=== PATIENT | female | born 1965 | race African-American/Black ===

== ENCOUNTER 2017-02-06 10:32 | Inpatient (IN) | payer SELFPAY ==
[~2017-02-06] VITALS: Ht 160 cm; Wt 68.0 kg
[~2017-02-06 10:32] MED LIST: ATOR20TA58 PO; LISI-334 PO; RANI300C PO; TRIA1CAP3 PO
[2017-02-06] MEDS ORDERED: THIAMINE 100 MG TABLET. PO ONE (11:15)
--- NOTE | 2017-02-06 11:15 | EKG ---
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
[2017-02-06] MEDS: IV NORMAL SALINE 1000ML BAG 1,000 ML IV SCH ×17 (11:36→18:45)
[2017-02-06 11:41] LABS: POTASSIUM ISTAT 4.4 mmol/L (3.5-5.0)
[2017-02-06] MEDS ORDERED: ONDANSETRON PF 4 MG/2 ML VIAL. IV ONE (12:00)
--- NOTE | 2017-02-06 12:27 | RAD ---
EXAM: CT head without contrast. HISTORY: Headache. TECHNIQUE: Computed tomography of the head was performed without intravenous contrast. COMPARISON: 08/21/2009. FINDINGS: There is no intracranial hemorrhage. Harmon-white differentiation is preserved. The ventricles are normal in size and position. The visualized paranasal sinuses appear clear. The orbits are unremarkable. The temporal bones are unremarkable. The calvarium reveals no suspicious lesions. IMPRESSION: 1. No acute intracranial findings. *One or more of the following individualized dose reduction techniques were utilized for this examination: 1. Automated exposure control. 2. Adjustment of the mA and/or kV according to patient size. 3. Use of iterative reconstruction technique.
[2017-02-06 12:58] LABS: BARBITURATES NEG (NEG); BENZODIAZEPINES NEG (NEG); CANNABINOIDS POS (NEG); COCAINE NEG (NEG); METHADONE NEG (NEG); OPIATES NEG (NEG); PHENCYCLIDINE NEG (NEG)
[2017-02-06] MEDS ORDERED: ONDANSETRON PF 4 MG/2 ML VIAL. IV PRN (13:00)
[2017-02-06] MEDS ORDERED: ACETAMINOPHEN 325 MG TABLET. PO PRN (13:00)
[2017-02-06] MEDS ORDERED: IV DEXTROSE 5% - 0.9 % NACL 500 ML IV ONE ×2 (13:00)
[2017-02-06 13:10] LABS: BASO # 0.1 x10^3/uL (0.0-0.2); BASO % 1 % (0-3); EOS % 0 % (0-3); HEMATOCRIT 47.2 % (36.0-47.0); LYMPH # 0.8 x10^3/uL (1.0-4.8); LYMPH % 8 % (24-48); MEAN CORPUSCULAR HEMOGLOBIN 32 pg (25-35); MEAN CORPUSCULAR HGB CONC 32 g/dL (31-37); MEAN CORPUSCULAR VOLUME 102 fL (79-100); MONO % 3 % (0-9); NEUT % 89 % (31-73); PLATELET COUNT 242 x10^3/uL (140-400); RED BLOOD COUNT 4.66 x10^6/uL (3.50-5.40); RED CELL DISTRIBUTION WIDTH 14.3 % (11.5-14.5)
[2017-02-06 13:12] LABS: BILIRUBIN,URINE NEGATIVE (NEG); GLUCOSE,URINE NEGATIVE (NEG); NITRITE,URINE NEGATIVE (NEG); PROTEIN,URINE >=300 mg/dL (NEG-TRACE); UROBILINOGEN,URINE 0.2 mg/dL (0.2 mg/dL)
[2017-02-06 13:20] LABS: BACTERIA,URINE MOD /HPF (0-FEW); SQUAMOUS EPITHELIAL CELL,UR MANY /LPF
--- NOTE | 2017-02-06 13:21 | RAD ---
Indication: Tachycardia. Time of exam 1311 hours. Correlation is made with prior study from 03/28/2015. FINDINGS: The heart size is normal. The lungs are clear. No pleural effusion or pneumothorax is identified. The pulmonary vascularity is normal. IMPRESSION: No acute abnormality detected.
[2017-02-06 13:34] LABS: PLT ESTIMATE ADEQUATE (ADEQUATE)
[2017-02-06] MEDS ORDERED: cloNIDine HCL 0.1 MG TABLET PO PRN (14:45)
[2017-02-06] MEDS ORDERED: diphenhydrAMINE 50 MG/ML VIAL IVP PRN (14:45)
[2017-02-06] MEDS ORDERED: HALOPERIDOL LACTATE 5 MG/ML VIAL. IVP PRN (14:45)
[2017-02-06 15:13] VITALS: BP 175/93
--- NOTE | 2017-02-06 15:13 | PHYS DOC ---
Past Medical History Past Medical History: Alcoholism, GERD, Hypertension, Pancreatitis Past Surgical History: Tubal ligation Additional Information: pt reports not smoking at this time. Alcohol Use: Heavy Additional Information: Pt reports not drinking for the past week. Drug Use: Marijuana Adult General Chief Complaint Chief Complaint: HEADACHE HPI HPI 51-year-old female with a history of alcoholism and gastritis reflux disease hypertension and chronic pancreatitis now presents the emergency department complaining of not feeling well since stopping drinking days ago. Patient reports mild malaise and a mild headache which was gradual onset. She denies any recent head trauma. States she is not feeling well in general. No fevers chills sweats or shaking chills. Decreased appetite Review of Systems Review of Systems Constitutional: Denies fever or chills [] Eyes: Denies change in visual acuity, redness, or eye pain [] HENT: Denies nasal congestion or sore throat [] Respiratory: Denies cough or shortness of breath [] Cardiovascular: No additional information not addressed in HPI [] GI: Denies abdominal pain, nausea, vomiting, bloody stools or diarrhea [] : Denies dysuria or hematuria [] Musculoskeletal: Denies back pain or joint pain [] Integument: Denies rash or skin lesions [] Neurologic: Denies headache, focal weakness or sensory changes [] Endocrine: Denies polyuria or polydipsia [] All other systems were reviewed and found to be within normal limits, except as documented in this note. Current Medications Current Medications Current Medications Medications (Trade) Dose Ordered Sig/Dyllan Start Time Stop Time Status Last Admin Dose Admin Lorazepam (Ativan) 1 mg 1X ONCE 02/06/17 11:15 02/06/17 11:16 DC 02/06/17 11:39 1 MG Ondansetron HCl (Zofran) 4 mg 1X ONCE 02/06/17 12:00 02/06/17 12:01 DC 02/06/17 11:51 4 MG Sodium Chloride 1,000 ml @ 999 mls/hr Q1H1M 02/06/17 11:15 02/06/17 12:58 999 MLS/HR Thiamine Mononitrate (Vitamin B-1) 100 mg ONCE ONCE 02/06/17 11:15 02/06/17 11:16 DC 02/06/17 12:36 100 MG Allergies Allergies Allergies Coded Allergies Type Severity Reaction Last Updated Verified No Known Drug Allergies 03/27/15 No Physical Exam Physical Exam 51-year-old female alert communicative cooperative and appropriate with dry mucous membranes mild tachycardia otherwise benign exam. Constitutional: Well developed, well nourished, no acute distress, non-toxic appearance. [] HENT: Normocephalic, atraumatic, bilateral external ears normal, oropharynx dry , no oral exudates, nose normal. [] Eyes: PERRLA, EOMI, conjunctiva normal, no discharge. [] Neck: Normal range of motion, no tenderness, supple, no stridor. [] Cardiovascular:Heart rate regular rhythm, no murmur [] Lungs & Thorax: Bilateral breath sounds clear to auscultation [] Abdomen: Bowel sounds normal, soft, no tenderness, no masses, no pulsatile masses. [] Skin: Warm, dry, no erythema, no rash. [] Back: No tenderness, no CVA tenderness. [] Extremities: No tenderness, no cyanosis, no clubbing, ROM intact, no edema. [] Neurologic: Alert and oriented X 3, normal motor function, normal sensory function, no focal deficits noted. [] Psychologic: Affect normal, judgement normal, mood normal. [] Current Patient Data Vital Signs Vital Signs Date Time Temp Pulse Resp B/P (MAP) Pulse Ox O2 Delivery O2 Flow Rate FiO2 02/06/17 12:34 104 22 98 02/06/17 10:37 97.7 124/71 (88) Room Air 97.7 Lab Values Laboratory Tests Test 02/06/17 10:52 02/06/17 11:36 02/06/17 12:35 White Blood Count 10.0 x10^3/uL (4.0-11.0) Red Blood Count 4.66 x10^6/uL (3.50-5.40) Hemoglobin 15.0 g/dL (12.0-15.5) Hematocrit 47.2 % (36.0-47.0) H Mean Corpuscular Volume 102 fL (79-100) H Mean Corpuscular Hemoglobin 32 pg (25-35) Mean Corpuscular Hemoglobin Concent 32 g/dL (31-37) Red Cell Distribution Width 14.3 % (11.5-14.5) Platelet Count 242 x10^3/uL (140-400) Neutrophils (%) (Auto) 89 % (31-73) H Lymphocytes (%) (Auto) 8 % (24-48) L Monocytes (%) (Auto) 3 % (0-9) Eosinophils (%) (Auto) 0 % (0-3) Basophils (%) (Auto) 1 % (0-3) Neutrophils # (Auto) 8.9 x10^3uL (1.8-7.7) H Lymphocytes # (Auto) 0.8 x10^3/uL (1.0-4.8) L Monocytes # (Auto) 0.3 x10^3/uL (0.0-1.1) Eosinophils # (Auto) 0.0 x10^3/uL (0.0-0.7) Basophils # (Auto) 0.1 x10^3/uL (0.0-0.2) Segmented Neutrophils % 83 % (35-66) H Band Neutrophils % 7 % (0-9) Lymphocytes % 6 % (24-48) L Monocytes % 4 % (0-10) Platelet Estimate Adequate (ADEQUATE) Troponin I Quantitative < 0.017 ng/mL (0.000-0.055) POC Hemoglobin 17.0 g/dL (12-15) H POC Hematocrit 50 % (36-40) H POC Sodium 137 mmol/L (135-145) POC Potassium 4.4 mmol/L (3.5-5.0) POC Chloride 107 mmol/L (98-110) POC Total CO2 8 mmol/L (23-32) L Anion Gap 27 mmol/L (6-14) H POC Blood Urea Nitrogen 19 mg/dL (8-26) POC Creatinine 1.9 mg/dL (0.5-1.4) H Glucose Level 96 mg/dL (70-99) POC Ionized Calcium (Li) 1.11 mmol/L (1.13-1.32) L Urine Collection Type Void Urine Color Yellow Urine Clarity Clear Urine pH 6.0 Urine Specific [place] 1.020 Urine Protein >=300 mg/dL (NEG-TRACE) Urine Glucose (UA) Negative mg/dL (NEG) Urine Ketones (Stick) >=80 mg/dL (NEG) Urine Blood Moderate (NEG) Urine Nitrite Negative (NEG) Urine Bilirubin Negative (NEG) Urine Urobilinogen Dipstick 0.2 mg/dL (0.2 mg/dL) Urine Leukocyte Esterase Negative (NEG) Urine RBC 3-5 /HPF (0-2) Urine WBC 1-4 /HPF (0-4) Urine Squamous Epithelial Cells Many /LPF Urine Bacteria Mod /HPF (0-FEW) Urine Mucus Slight /LPF Urine Opiates Screen Neg (NEG) Urine Methadone Screen Neg (NEG) Urine Barbiturates Neg (NEG) Urine Phencyclidine Screen Neg (NEG) Urine Amphetamine/Methamphetamine Neg (NEG) Urine Benzodiazepines Screen Neg (NEG) Urine Cocaine Screen Neg (NEG) Urine Cannabinoids Screen Pos (NEG) Urine Ethyl Alcohol Pos (NEG) Laboratory Tests 02/06/17 10:52 Laboratory Tests 02/06/17 11:36 EKG EKG [] Radiology/Procedures Radiology/Procedures [] Course & Med Decision Making Course & Med Decision Making Pertinent Labs and Imaging studies reviewed. (See chart for details) Signs and symptoms consistent with dehydration setting of alcoholism. Patient with mild tachycardia and appearing dry on exam, otherwise well-appearing and nonfocal neurologically. Lukas no tremor seizure history or evidence of DTs. I- STAT was CO2 8 consistent with metabolic acidosis with anion gap of 27 suspect alcoholic ketoacidosis. IV fluids had been initially administered and D5 normal saline ordered. Patient with renal injury creatinine 1.9. She has no evidence of respiratory pathology and no suspicion of mixed acid base disorder. Case discussed with Dr. Roc Simmons [facility] on-call is aware of history and findings and agrees with inpatient admission his service to a telemetry bed for further workup and treatment as needed. [] Dragon Disclaimer Dragon Disclaimer This electronic medical record was generated, in whole or in part, using a voice recognition dictation system. Departure Departure Impression: Primary Impression: Dehydration Additional Impressions: Metabolic acidosis Alcoholic ketoacidosis Acute renal injury Disposition: ADMITTED INPATIENT Admitting Physician: Mike Simmons Condition: STABLE Referrals: NO PCP (PCP) Problem Qualifiers CARLO DOWD MD Feb 06, 2017 15:13
[2017-02-06 15:15] VITALS: BP 175/93
[2017-02-06] MEDS: MULTIVIT INFUSN,ADULT 4,VIT K 10 ML, THIAMINE 100 MG, FOLIC ACID 1 MG in IV NORMAL SALI... IV SCH (15:30)
[2017-02-06] MEDS ORDERED: INFLUENZA VAX SCREEN BY RX. MC PRN (17:30)
[2017-02-06] MEDS ORDERED: FLU VACC QS2017-18 (36MOS+)/PF 0.5 ML SYRINGE. VAX IM ONE (18:00)
--- NOTE | 2017-02-06 18:18 | HP ---
ADMIT DATE: 02/06/2017 CHIEF COMPLAINT: Alcohol withdrawal. HISTORY OF PRESENT ILLNESS: The patient is a pleasant middle-aged female who drinks too much. She states she has been drinking gin again. 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 Basically, she is in alcohol withdrawal. She also has alcoholic ketosis. I discussed the case with the Emergency Room physician. We are going to admit the patient and give her alcohol withdrawal protocol. PAST MEDICAL HISTORY: Alcoholism. ALLERGIES: None. FAMILY HISTORY: Coronary artery disease and alcoholism. 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 She does not smoke or take drugs. MEDICATIONS: Reviewed. REVIEW OF SYSTEMS: GENERAL: No history of weight change, weakness or fevers. SKIN: No bruising, hair changes or rashes. EYES: No blurred, double or loss of vision. NOSE AND THROAT: No history of nosebleeds, hoarseness or sore throat. HEART: No history of palpitations, chest pain or shortness of breath on exertion. LUNGS: Denies cough, hemoptysis, wheezing or shortness of breath. GASTROINTESTINAL: Denies changes in appetite, nausea, vomiting, diarrhea or constipation. GENITOURINARY: No history of frequency, urgency, hesitancy or nocturia. NEUROLOGIC: She complains of shaking and mental confusion. PSYCHIATRIC: No history of panic, anxiety or depression. ENDOCRINE: No history of heat or cold intolerance, polyuria or polydipsia. EXTREMITIES: She complains of weakness. PHYSICAL EXAMINATION: VITAL SIGNS: Temperature afebrile, pulse 92, respirations 18, blood pressure 146/70. GENERAL: She is alert, cooperative, a little shaky, a little confused at times. HEART: Normal S1, S2. LUNGS: Clear. ABDOMEN: Soft. EXTREMITIES: Trace edema. SKIN: No rashes. ENDOCRINE: No thyromegaly. LYMPHATICS: No cervical nodes. HEMATOPOIETIC: No bruising. ASSESSMENT AND PLAN: Alcohol withdrawal. The patient is being admitted. We will give her IV banana bags, IV Ativan, alcohol withdrawal protocol. Continue home medicines. ANGELA FRAGA DO DR: ZEE/jeff JOB#: [id number] / [id number]
[2017-02-06 19:53] VITALS: BP 160/87
[2017-02-06 23:00] VITALS: BP 165/90
[2017-02-07 03:05] VITALS: BP 129/68
[2017-02-07] MEDS: IV NORMAL SALINE 1000ML BAG 1,000 ML IV SCH ×3 (04:08→20:43)
[2017-02-07 07:00] VITALS: BP 130/83
[2017-02-07] MEDS: MULTIVIT INFUSN,ADULT 4,VIT K 10 ML, THIAMINE 100 MG, FOLIC ACID 1 MG in IV NORMAL SALI... IV SCH (08:39)
[2017-02-07 11:00] VITALS: BP 128/70
[2017-02-07 15:00] VITALS: BP 128/84
--- NOTE | 2017-02-07 15:29 | PDOC ---
PROGRESS NOTES History of Present Illness History of Present Illness FAMILY HISTORY: Coronary artery disease and alcoholism. 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 She does not smoke or take drugs. MEDICATIONS: Reviewed. REVIEW OF SYSTEMS: GENERAL: No history of weight change, weakness or fevers. SKIN: No bruising, hair changes or rashes. EYES: No blurred, double or loss of vision. NOSE AND THROAT: No history of nosebleeds, hoarseness or sore throat. HEART: No history of palpitations, chest pain or shortness of breath on exertion. LUNGS: Denies cough, hemoptysis, wheezing or shortness of breath. GASTROINTESTINAL: Denies changes in appetite, nausea, vomiting, diarrhea or constipation. GENITOURINARY: No history of frequency, urgency, hesitancy or nocturia. NEUROLOGIC: She complains of shaking and mental confusion. PSYCHIATRIC: No history of panic, anxiety or depression. ENDOCRINE: No history of heat or cold intolerance, polyuria or polydipsia. EXTREMITIES: She complains of weakness. PHYSICAL EXAMINATION: VITAL SIGNS: Temperature afebrile, pulse 92, respirations 18, blood pressure 146/70. GENERAL: She is alert, cooperative, shaky, confused at times. HEART: Normal S1, S2. LUNGS: Clear. ABDOMEN: Soft. EXTREMITIES: Trace edema. SKIN: No rashes. ENDOCRINE: No thyromegaly. LYMPHATICS: No cervical nodes. HEMATOPOIETIC: No bruising. ASSESSMENT AND PLAN: Alcohol withdrawal. The patient is being admitted. IV banana bags, IV Ativan, alcohol withdrawal protocol. Continue home medicines. Vitals Vitals Vital Signs Date Time Temp Pulse Resp B/P (MAP) Pulse Ox O2 Delivery O2 Flow Rate FiO2 02/07/17 15:00 98.0 86 18 128/84 (99) 98 Room Air 98.0 Physical Exam Lungs: Clear Labs LABS Laboratory Tests Test 02/06/17 19:00 02/07/17 01:00 Troponin I Quantitative < 0.017 ng/mL (0.000-0.055) < 0.017 ng/mL (0.000-0.055) Assessment and Plan Assessmemt and Plan Problems Medical Problems: (1) Acute renal injury Status: Acute (2) Alcoholic ketoacidosis Status: Acute Problems: Comment Review of Relevant I have reviewed the following items ranjit (where applicable) has been applied. Labs EXAM: CT head without contrast. HISTORY: Headache. TECHNIQUE: Computed tomography of the head was performed without intravenous contrast. COMPARISON: 08/21/2009. FINDINGS: There is no intracranial hemorrhage. Harmon-white differentiation is preserved. The ventricles are normal in size and position. The visualized paranasal sinuses appear clear. The orbits are unremarkable. The temporal bones are unremarkable. The calvarium reveals no suspicious lesions. IMPRESSION: 1. No acute intracranial findings. *One or more of the following individualized dose reduction techniques were utilized for this examination: 1. Automated exposure control. 2. Adjustment of the mA and/or kV according to patient size. 3. Use of iterative reconstruction technique. PROCEDURE: CHEST AP ONLY Indication: Tachycardia. Time of exam 1311 hours. Correlation is made with prior study from 03/28/2015. FINDINGS: The heart size is normal. The lungs are clear. No pleural effusion or pneumothorax is identified. The pulmonary vascularity is normal. IMPRESSION: No acute abnormality detected. Laboratory Tests Test 02/06/17 10:52 02/06/17 11:36 02/06/17 12:35 02/06/17 19:00 White Blood Count 10.0 x10^3/uL (4.0-11.0) Red Blood Count 4.66 x10^6/uL (3.50-5.40) Hemoglobin 15.0 g/dL (12.0-15.5) Hematocrit 47.2 % (36.0-47.0) Mean Corpuscular Volume 102 fL (79-100) Mean Corpuscular Hemoglobin 32 pg (25-35) Mean Corpuscular Hemoglobin Concent 32 g/dL (31-37) Red Cell Distribution Width 14.3 % (11.5-14.5) Platelet Count 242 x10^3/uL (140-400) Neutrophils (%) (Auto) 89 % (31-73) Lymphocytes (%) (Auto) 8 % (24-48) Monocytes (%) (Auto) 3 % (0-9) Eosinophils (%) (Auto) 0 % (0-3) Basophils (%) (Auto) 1 % (0-3) Neutrophils # (Auto) 8.9 x10^3uL (1.8-7.7) Lymphocytes # (Auto) 0.8 x10^3/uL (1.0-4.8) Monocytes # (Auto) 0.3 x10^3/uL (0.0-1.1) Eosinophils # (Auto) 0.0 x10^3/uL (0.0-0.7) Basophils # (Auto) 0.1 x10^3/uL (0.0-0.2) Segmented Neutrophils % 83 % (35-66) Band Neutrophils % 7 % (0-9) Lymphocytes % 6 % (24-48) Monocytes % 4 % (0-10) Platelet Estimate Adequate (ADEQUATE) Troponin I Quantitative < 0.017 ng/mL (0.000-0.055) < 0.017 ng/mL (0.000-0.055) Bedside Hemoglobin 17.0 g/dL (12-15) Bedside Hematocrit 50 % (36-40) Bedside Sodium 137 mmol/L (135-145) Bedside Potassium 4.4 mmol/L (3.5-5.0) Bedside Chloride 107 mmol/L (98-110) Bedside Total CO2 8 mmol/L (23-32) Anion Gap 27 mmol/L (6-14) Bedside Blood Urea Nitrogen 19 mg/dL (8-26) Bedside Creatinine 1.9 mg/dL (0.5-1.4) Glucose Level 96 mg/dL (70-99) Bedside Ionized Calcium (Li) 1.11 mmol/L (1.13-1.32) Urine Collection Type Void Urine Color Yellow Urine Clarity Clear Urine pH 6.0 Urine Specific [place] 1.020 Urine Protein >=300 mg/dL (NEG-TRACE) Urine Glucose (UA) Negative mg/dL (NEG) Urine Ketones (Stick) >=80 mg/dL (NEG) Urine Blood Moderate (NEG) Urine Nitrite Negative (NEG) Urine Bilirubin Negative (NEG) Urine Urobilinogen Dipstick 0.2 mg/dL (0.2 mg/dL) Urine Leukocyte Esterase Negative (NEG) Urine RBC 3-5 /HPF (0-2) Urine WBC 1-4 /HPF (0-4) Urine Squamous Epithelial Cells Many /LPF Urine Bacteria Mod /HPF (0-FEW) Urine Mucus Slight /LPF Urine Opiates Screen Neg (NEG) Urine Methadone Screen Neg (NEG) Urine Barbiturates Neg (NEG) Urine Phencyclidine Screen Neg (NEG) Urine Amphetamine/Methamphetamine Neg (NEG) Urine Benzodiazepines Screen Neg (NEG) Urine Cocaine Screen Neg (NEG) Urine Cannabinoids Screen Pos (NEG) Urine Ethyl Alcohol Pos (NEG) Test 02/07/17 01:00 Troponin I Quantitative < 0.017 ng/mL (0.000-0.055) Laboratory Tests Test 02/06/17 19:00 02/07/17 01:00 Troponin I Quantitative < 0.017 ng/mL (0.000-0.055) < 0.017 ng/mL (0.000-0.055) Medications Current Medications Thiamine Mononitrate (Vitamin B-1) 100 mg ONCE ONCE PO Last administered on 12:36; Start 02/06/17 at 11:15; Stop 02/06/17 at 18:46; Status DC Sodium Chloride 1,000 ml @ 999 mls/hr Q1H1M IV Last administered on 11:36; Start 02/06/17 at 11:15; Stop 02/06/17 at 18:46; Status DC Sodium Chloride 1,000 ml @ 999 mls/hr Q1H1M IV Last administered on 12:58; Start 02/06/17 at 11:15; Stop 02/06/17 at 18:46; Status DC Lorazepam (Ativan) 1 mg 1X ONCE IV Last administered on 02/06/17 11:39; Start 02/06/17 at 11:15; Stop 02/06/17 at 11:16; Status DC Ondansetron HCl (Zofran) 4 mg 1X ONCE IV Last administered on 02/06/17 11:51 ; Start 02/06/17 at 12:00; Stop 02/06/17 at 12:01; Status DC Dextrose/Sodium Chloride 500 ml @ 0 mls/hr 1X ONCE IV Last administered on 13:31; Start 02/06/17 at 13:00; Stop 02/06/17 at 13:01; Status DC Ondansetron HCl (Zofran) 4 mg PRN Q8HRS PRN IV NAUSEA/VOMITING Last administered on 02/06/17 14:57; Start 02/06/17 at 13:00; Stop 02/07/17 at 12 :59; Status DC Acetaminophen (Tylenol) 650 mg PRN Q4HRS PRN PO FEVER Last administered on 19:54; Start 02/06/17 at 13:00; Stop 02/07/17 at 12:59; Status DC Dextrose/Sodium Chloride 500 ml @ 250 mls/hr 1X ONCE IV Last administered on 02/06/17 14:03; Start 02/06/17 at 13:00; Stop 02/06/17 at 14:59; Status DC Multivitamins 10 ml/Thiamine HCl 100 mg/Folic Acid 1 mg/Sodium Chloride 1,011.2 ml @ 100 mls/ hr DAILY IV Last administered on 02/07/17 08:39; Start at 15:30; Stop 02/10/17 at 19:07 Lorazepam (Ativan) 2 mg PRN Q1HR PRN IV For CIWA 8-14 Last administered on 08:51; Start 02/06/17 at 14:45 Lorazepam (Ativan) 4 mg PRN Q1HR PRN IV For CIWA 15 or greater Last administered on 02/06/17 14:58; Start 02/06/17 at 14:45 Haloperidol Lactate (Haldol) 5 mg PRN Q4HRS PRN IVP Hallucinatns,Confusn, Delirium; Start 02/06/17 at 14:45 Diphenhydramine HCl (Benadryl) 25 mg PRN Q15MIN PRN IVP EPS symptoms 2'Haldol admin; Start 02/06/17 at 14:45 Clonidine HCl (Catapres) 0.1 mg PRN Q1HR PRN PO SBP > 180 or DBP > 100, MRX3; Start 02/06/17 at 14:45 Info (Do NOT chart on this placeholder) 1 each PRN 1X PRN MC SEE COMMENTS; Start 02/06/17 at 17:30; Status UNV Influenza Virus Vaccine Quadrival (Fluarix Quad [id number] Syringe) 0.5 ml ONCE ONCE VAX IM Last administered on 02/06/17 18:02; Start 02/06/17 at 18:00; Stop 02/06/17 at 18:01; Status DC Sodium Chloride 1,000 ml @ 125 mls/hr Q8H IV Last administered on 02/07/17 04:08; Start 02/06/17 at 18:45 Active Scripts Active Atorvastatin Calcium 20 Mg Tablet 20 Mg PO QHS Reported Triamterene-Hctz 37.5-25 Mg Cp (Triamterene/Hydrochlorothiazid) 1 Each Capsule 1 Cap PO DAILY Ranitidine Hcl 300 Mg Capsule 1 Cap PO BID Lisinopril 20 Mg Tablet 1 Tab PO DAILY Vitals/I & O SEVERE ALCOHOL ABUSE THC ABUSE NONCOMPLIANCE WITH ALCOHOL CESSATION Vital Sign - Last 24 Hours 02/06/17 02/06/17 02/06/17 02/06/17 15:43 19:53 20:00 20:47 Temp 99.0 99.0 Pulse 99 Resp 20 B/P (MAP) 160/87 (111) Pulse Ox 98 O2 Delivery Room Air Room Air Room Air 02/06/17 02/07/17 02/07/17 02/07/17 23:00 03:05 07:00 08:00 Temp 98.3 98.0 97.8 98.3 98.0 97.8 Pulse 94 93 78 Resp 18 18 18 B/P (MAP) 165/90 (115) 129/68 (88) 130/83 (99) Pulse Ox 97 96 100 O2 Delivery Room Air Room Air Room Air Room Air 02/07/17 02/07/17 11:00 15:00 Temp 98.1 98.0 98.1 98.0 Pulse 90 86 Resp 18 18 B/P (MAP) 128/70 (89) 128/84 (99) Pulse Ox 97 98 O2 Delivery Room Air Room Air Intake and Output 02/06/17 02/06/17 02/07/17 14:59 22:59 06:59 Intake Total 2500 ml 1940 ml 500 ml Balance 2500 ml 1940 ml 500 ml TALI YUN MD Feb 07, 2017 15:29
[2017-02-07] MEDS: PANTOPRAZOLE SODIUM IV DRIP 80 MG in IV NORMAL SALINE 100ML 100 ML IV SCH (16:33)
[2017-02-07 16:53] LABS: ALBUMIN 3.5 g/dL (3.4-5.0); ALBUMIN/GLOBULIN RATIO 0.9 (1.0-1.7); CALCIUM 8.4 mg/dL (8.5-10.1); CREATININE 0.8 mg/dL (0.6-1.0); GFR 90.8; POTASSIUM 3.6 mmol/L (3.5-5.1); TOTAL BILIRUBIN 0.6 mg/dL (0.2-1.0); TOTAL PROTEIN 7.3 g/dL (6.4-8.2)
[2017-02-07 19:05] VITALS: BP 134/84
[2017-02-07 23:05] VITALS: BP 148/91
[2017-02-08 03:05] VITALS: BP 147/93
[2017-02-08] MEDS: PANTOPRAZOLE SODIUM IV DRIP 80 MG in IV NORMAL SALINE 100ML 100 ML IV SCH ×2 (03:10→12:00)
[2017-02-08 03:44] LABS: BASO % 1 % (0-3); EOS % 1 % (0-3); HEMATOCRIT 38.5 % (36.0-47.0); HEMOGLOBIN 12.9 g/dL (12.0-15.5); LYMPH # 1.3 x10^3/uL (1.0-4.8); LYMPH % 20 % (24-48); MEAN CORPUSCULAR HEMOGLOBIN 32 pg (25-35); MEAN CORPUSCULAR HGB CONC 34 g/dL (31-37); MEAN CORPUSCULAR VOLUME 96 fL (79-100); MONO % 3 % (0-9); NEUT % 75 % (31-73); PLATELET COUNT 103 x10^3/uL (140-400); RED BLOOD COUNT 4.02 x10^6/uL (3.50-5.40); WHITE BLOOD COUNT 6.4 x10^3/uL (4.0-11.0)
[2017-02-08 04:19] LABS: ALBUMIN 3.1 g/dL (3.4-5.0); ALBUMIN/GLOBULIN RATIO 0.8 (1.0-1.7); CALCIUM 8.4 mg/dL (8.5-10.1); CREATININE 0.7 mg/dL (0.6-1.0); GFR 105.9; TOTAL BILIRUBIN 0.6 mg/dL (0.2-1.0); TOTAL PROTEIN 7.2 g/dL (6.4-8.2)
[2017-02-08] MEDS: IV NORMAL SALINE 1000ML BAG 1,000 ML IV SCH ×4 (05:12→19:50)
[2017-02-08 07:00] VITALS: BP 175/91
--- NOTE | 2017-02-08 07:23 | RAD ---
EXAM: ABDOMINAL ULTRASOUND. HISTORY: Abdominal pain, nausea/vomiting. COMPARISON: None. FINDINGS: Sonographic evaluation of the abdomen was performed. Hyperechogenicity of the hepatic parenchyma is consistent with diffuse hepatic steatosis. This lowers sensitivity for focal lesions but none are seen. There is no clear hepatic surface nodularity. The liver is at least mildly enlarged spanning 18.3 cm. The spleen measures 10.3 cm. The gallbladder is unremarkable without evidence of stones, wall thickening or pericholecystic fluid. There is no sonographic Perry sign. The common duct measures 4.5 mm. The visualized portions of the head of the pancreas reveal no abnormality. The right kidney measures 9.8 cm. Cortical thickness and echogenicity are preserved. There is no hydronephrosis. The left kidney measures 11.5 cm. Cortical thickness and echogenicity are preserved. There is no hydronephrosis. The visualized portions of the abdominal aorta and inferior vena cava are grossly patent and normal in caliber. IMPRESSION: 1. Diffuse hepatic steatosis and mild hepatomegaly.
[2017-02-08] MEDS: TRIAMTERENE/HCTZ 37.5/25MG TABLET. PO SCH (08:57)
[2017-02-08] MEDS: FAMOTIDINE 20 MG TABLET. PO SCH ×2 (08:58→20:17)
[2017-02-08] MEDS: LISINOPRIL 20 MG TABLET PO SCH (08:58)
[2017-02-08] MEDS ORDERED: LORazepam 1 MG TABLET PO PRN (10:45)
[2017-02-08 11:00] VITALS: BP 163/95
[2017-02-08] MEDS: MULTIVIT INFUSN,ADULT 4,VIT K 10 ML, THIAMINE 100 MG, FOLIC ACID 1 MG in IV NORMAL SALI... IV SCH (11:10)
[2017-02-08] MEDS: amLODIPine BESYLATE 5 MG TABLET PO SCH ×2 (11:10→20:18)
[2017-02-08] MEDS: HYDROcodone/APAP 5/325MG 1 TAB TABLET PO PRN ×2 (11:10→20:19)
--- NOTE | 2017-02-08 12:10 | PDOC2 ---
GI CONSULT Reason For Consult: Abd pain HPI: HPI: 51 y/o female w/ h/o alcoholism, drinking 1/2 pint of gin daily, stopped "cold turkey" on 02/02/17. That evening began having n/v, unable to tolerate much PO last weekend. Similar symptoms w/ withdrawal in the past. Additionally, has been uninsured and out of blood pressure meds x 2 months. 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 Labs significant for normal WBC and Hgb, low plt 103, tox screen + cannabinoids +ethyl alcohol, note elevated ALT. CT head and CXR unrevealing. Feeling better now, tolerating full liquids w/o n/v. Does have abd pain, she thinks related to retching. Pain is "all over" her abdomen, worse w/ breathing , not affected by eating or stooling. Abd US yesterday w/ normal GB (and CBD) and hepatic steatosis w/ hepatomegaly. On PO H2 jing BID and PPI drip. H/o GERD controlled w/ ranitidine QD (takes at varies times before meals which she eats irregularly). No dysphagia. No hematemesis, hematochezia, melena. No diarrhea. Feels a little constipation; had a small hard stool this morning but is usually very regular. Perhaps has lost a few pounds. No previous EGD or colonoscopy. Had pancreatitis 3-4 years ago, attributed to alcohol. Lipase not checked this admission; has been low/normal in the past. No pancreatic abnormality on CT in 03/2015. No NSAID use, takes Tylenol for pain PRN. Has tried to stop drinking in the past w/ AA. Asks if she'll be able to go home tomorrow; she and her have 9 children and 27 grandchildren, [facility] [employer] [facility] PMH: PMH: alcoholism, HTN, GERD, pancreatitis, ?absence seizure, tubal ligation, dental extractions FH: Family History: Cancer (on maternal side - denies GI cancers) Social History: Smoke: No ALCOHOL: heavy (1/2 pint gin daily) Drugs: Marijuana (occasional) ROS: GEN: Denies fevers, chills, sweats HEENT: Denies blurred vision, sore throat CV: Denies chest pain RESP: Denies shortness of air, cough GI: Per HPI : Denies hematuria, dysuria ENDO: +weight loss NEURO: Denies confusion, dizziness MSK: Denies weakness, joint pain/swelling SKIN: Denies jaundice, pruritus Vitals: Vitals: Vital Signs Date Time Temp Pulse Resp B/P (MAP) Pulse Ox O2 Delivery O2 Flow Rate FiO2 02/08/17 11:10 96 163/95 02/08/17 11:00 98.1 18 98 Room Air 98.1 Labs: Labs: Laboratory Tests Test 02/07/17 16:19 02/08/17 03:20 Sodium Level 135 mmol/L (136-145) 138 mmol/L (136-145) Potassium Level 3.6 mmol/L (3.5-5.1) 3.0 mmol/L (3.5-5.1) Chloride Level 102 mmol/L (98-107) 104 mmol/L (98-107) Carbon Dioxide Level 17 mmol/L (21-32) 22 mmol/L (21-32) Anion Gap 16 (6-14) 12 (6-14) Blood Urea Nitrogen 9 mg/dL (7-20) 7 mg/dL (7-20) Creatinine 0.8 mg/dL (0.6-1.0) 0.7 mg/dL (0.6-1.0) Estimated GFR (Cockcroft-Gault) 90.8 105.9 BUN/Creatinine Ratio 11 (6-20) 10 (6-20) Glucose Level 123 mg/dL (70-99) 113 mg/dL (70-99) Calcium Level 8.4 mg/dL (8.5-10.1) 8.4 mg/dL (8.5-10.1) Total Bilirubin 0.6 mg/dL (0.2-1.0) 0.6 mg/dL (0.2-1.0) Aspartate Amino Transf (AST/SGOT) 46 U/L (15-37) 51 U/L (15-37) Alanine Aminotransferase (ALT/SGPT) 26 U/L (14-59) 28 U/L (14-59) Alkaline Phosphatase 86 U/L (46-116) 90 U/L (46-116) Total Protein 7.3 g/dL (6.4-8.2) 7.2 g/dL (6.4-8.2) Albumin 3.5 g/dL (3.4-5.0) 3.1 g/dL (3.4-5.0) Albumin/Globulin Ratio 0.9 (1.0-1.7) 0.8 (1.0-1.7) White Blood Count 6.4 x10^3/uL (4.0-11.0) Red Blood Count 4.02 x10^6/uL (3.50-5.40) Hemoglobin 12.9 g/dL (12.0-15.5) Hematocrit 38.5 % (36.0-47.0) Mean Corpuscular Volume 96 fL (79-100) Mean Corpuscular Hemoglobin 32 pg (25-35) Mean Corpuscular Hemoglobin Concent 34 g/dL (31-37) Red Cell Distribution Width 14.0 % (11.5-14.5) Platelet Count 103 x10^3/uL (140-400) Neutrophils (%) (Auto) 75 % (31-73) Lymphocytes (%) (Auto) 20 % (24-48) Monocytes (%) (Auto) 3 % (0-9) Eosinophils (%) (Auto) 1 % (0-3) Basophils (%) (Auto) 1 % (0-3) Neutrophils # (Auto) 4.8 x10^3uL (1.8-7.7) Lymphocytes # (Auto) 1.3 x10^3/uL (1.0-4.8) Monocytes # (Auto) 0.2 x10^3/uL (0.0-1.1) Eosinophils # (Auto) 0.1 x10^3/uL (0.0-0.7) Basophils # (Auto) 0.0 x10^3/uL (0.0-0.2) Allergies: Coded Allergies: No Known Drug Allergies (Unverified , 03/27/15) Medications: Current Medications Medications (Trade) Dose Ordered Sig/Dyllan Route PRN Reason Start Time Stop Time Status Last Admin Dose Admin Pantoprazole Sodium 80 mg/ Sodium Chloride 100 ml @ 10 mls/hr Q10H IV 02/07/17 16:00 02/08/17 03:10 Lisinopril (Prinivil) 20 mg DAILY PO 02/08/17 09:00 02/08/17 08:58 Famotidine (Pepcid) 20 mg BID PO 02/08/17 09:00 02/08/17 08:58 Triamterene/HCTZ (Maxzide 37.5/ 25mg) 1 tab DAILY PO 02/08/17 09:00 02/08/17 08:57 Lorazepam (Ativan) 1 mg PRN Q6HRS PRN PO ANXIETY / AGITATION 02/08/17 10:45 02/08/17 11:09 Acetaminophen/ Hydrocodone Bitart (Lortab 5/325) 1 tab PRN Q4HRS PRN PO PAIN 02/08/17 10:45 02/08/17 11:10 Amlodipine Besylate (Norvasc) 5 mg [id number] PO 02/08/17 11:00 02/08/17 11:10 Imaging: Imaging: Head CT 02/06/17 IMPRESSION: 1. No acute intracranial findings. CXR 02/06/17 IMPRESSION: No acute abnormality detected. Abd US Hyperechogenicity of the hepatic parenchyma is consistent with diffuse hepatic steatosis. This lowers sensitivity for focal lesions but none are seen. There is no clear hepatic surface nodularity. The liver is at least mildly enlarged spanning 18.3 cm. The spleen measures 10.3 cm. The gallbladder is unremarkable without evidence of stones, wall thickening or pericholecystic fluid. There is no sonographic Perry sign. The common duct measures 4.5 mm. The visualized portions of the head of the pancreas reveal no abnormality. The right kidney measures 9.8 cm. Cortical thickness and echogenicity are preserved. There is no hydronephrosis. The left kidney measures 11.5 cm. Cortical thickness and echogenicity are preserved. There is no hydronephrosis. The visualized portions of the abdominal aorta and inferior vena cava are grossly patent and normal in caliber. IMPRESSION: 1. Diffuse hepatic steatosis and mild hepatomegaly. CT A/P 03/2015 FINDINGS: Abdominal aorta not aneurysmal. Moderate calcific atherosclerosis. 26 x 9 millimeter oval-shaped mixed attenuation focus right lung base which appears slightly more prominent than prior. No intrahepatic bile duct dilation. Moderate low attenuation of the liver. Low-attenuation nodularity right adrenal gland, could be a small adenoma. No peripancreatic edema. Spleen unremarkable. No hydronephrosis. No definite evidence of small bowel obstruction. Appendix not dilated. Bladder unremarkable within limits of CT. Small right greater than left fat containing inguinal hernias. Small fat containing umbilical hernia. IMPRESSION: No evidence of appendicitis or bowel obstruction. No hydronephrosis. Probable fatty liver. Mixed attenuation structure at the right lung base is again seen but appears slightly more prominent than prior. Could be a small bleb or scar with debris within but would consider obtaining a followup in a few months to ensure no growth given the increase in prominence. MPI 03/2015 Conclusion 1. The baseline electrocardiogram was normal. 2. There are no electrocardiographic changes suggestive of myocardial ischemia with exercise. 3. She exercised on the Ajay protocol for a total of 8 minutes attaining the maximum predicted heart rate for her age. 4. There is no chest pain, no arrhythmias and a normal blood pressure. 5. No perfusion defects to suggest myocardial ischemia or scar. 6. Normal wall motion and wall thickening with ejection fraction of 72%. 7. Scan indicates low risk for future cardiac events. PE: GEN: NAD HEENT: Atraumatic, PERRL LUNGS: CTAB anteriorly HEART: tachycardic ABD: NABS, S/ND, RUQ/LUQ/RLQ/LLQ discomfort EXTREMITY: No edema SKIN: No rashes, no jaundice NEURO/PSYCH: A & O 3 A/P: A/P: Alcoholism -reports last drink 02/02, tox screen +ethyl alcohol 02/06 HTN -out of meds x 2 months prior to admission, uninsured N/v - resolved Abd pain -diffuse, worse w/ breathing, attributes to retching GERD -controlled w/ H2 jing QD H/o pancreatitis -one episode 3-4 years ago, attributed to alcohol -normal gallbladder on US, last CT in 03/2015 w/ normal pancreas Hepatic steatosis, hepatomegaly -note thrombocytopenia Constipation -small amount of hard stool this morning CRC screen -no previous colonoscopy -- Abd pain probably MSK in nature; however, will review w/ Dr. Fernandez re: any additional recommendations (?CT w/ pancreatitis history). Stop PPI drip, continue PO H2 jing as she does at home. Add Miralax for constipation. ADAT. Withdrawal precautions. HTN per primary. Encouraged abstinence from alcohol, AA or similar. Outpt screening colonoscopy +/- EGD w/ GERD history. LEROY FERRELL Feb 08, 2017 12:10
[2017-02-08] MEDS ORDERED: BISACODYL 5 MG TABLET.DR. PO PRN (12:15)
[2017-02-08] MEDS: POLYETHYLENE GLYCOL 3350 17 GM PACKET. PO SCH (14:19)
--- NOTE | 2017-02-08 14:28 | PDOC ---
PROGRESS NOTES Chief Complaint Chief Complaint ASSESSMENT AND PLAN: 1. Alcohol withdrawal. The patient is being admitted. 2. epigastric pain, prob alcohol induced gastritis 3. stress and anxiety, work related 4. alcohol abuse 5. thc abuse SHE DOES REPORT A HX DT'S IN THE PAST IV banana bags, IV Ativan, alcohol withdrawal protocol. Continue home medicines. GI CONSULT IV PROTONIX History of Present Illness History of Present Illness FAMILY HISTORY: Coronary artery disease and alcoholism. 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 She does not smoke or take drugs. MEDICATIONS: Reviewed. REVIEW OF SYSTEMS: GENERAL: No history of weight change, weakness or fevers. SKIN: No bruising, hair changes or rashes. EYES: No blurred, double or loss of vision. NOSE AND THROAT: No history of nosebleeds, hoarseness or sore throat. HEART: No history of palpitations, chest pain or shortness of breath on exertion. LUNGS: Denies cough, hemoptysis, wheezing or shortness of breath. GASTROINTESTINAL: Denies changes in appetite, nausea, vomiting, diarrhea or constipation. GENITOURINARY: No history of frequency, urgency, hesitancy or nocturia. NEUROLOGIC: She complains of shaking and mental confusion. PSYCHIATRIC: No history of panic, anxiety or depression. ENDOCRINE: No history of heat or cold intolerance, polyuria or polydipsia. EXTREMITIES: She complains of weakness. PHYSICAL EXAMINATION: VITAL SIGNS: Temperature afebrile, pulse 80 respirations 18, blood pressure 146/70. GENERAL: She is alert, cooperative, shaky, ALERT NOW HEART: Normal S1, S2. LUNGS: Clear. ABDOMEN: Soft. EXTREMITIES: Trace edema. SKIN: No rashes. ENDOCRINE: No thyromegaly. LYMPHATICS: No cervical nodes. HEMATOPOIETIC: No bruising. ASSESSMENT AND PLAN: Alcohol withdrawal. IV banana bags, IV Ativan, alcohol withdrawal protocol. Continue home medicines GI CONSULT. Vitals Vitals Vital Signs Date Time Temp Pulse Resp B/P (MAP) Pulse Ox O2 Delivery O2 Flow Rate FiO2 02/08/17 11:10 96 163/95 02/08/17 11:00 98.1 18 98 Room Air 98.1 Physical Exam Lungs: Clear Abdomen: Soft Extremities: No clubbing, No cyanosis, No tenderness/swelling Skin: No rashes Labs LABS Laboratory Tests Test 02/07/17 16:19 02/08/17 03:20 Sodium Level 135 mmol/L (136-145) 138 mmol/L (136-145) Potassium Level 3.6 mmol/L (3.5-5.1) 3.0 mmol/L (3.5-5.1) Chloride Level 102 mmol/L (98-107) 104 mmol/L (98-107) Carbon Dioxide Level 17 mmol/L (21-32) 22 mmol/L (21-32) Anion Gap 16 (6-14) 12 (6-14) Blood Urea Nitrogen 9 mg/dL (7-20) 7 mg/dL (7-20) Creatinine 0.8 mg/dL (0.6-1.0) 0.7 mg/dL (0.6-1.0) Estimated GFR (Cockcroft-Gault) 90.8 105.9 BUN/Creatinine Ratio 11 (6-20) 10 (6-20) Glucose Level 123 mg/dL (70-99) 113 mg/dL (70-99) Calcium Level 8.4 mg/dL (8.5-10.1) 8.4 mg/dL (8.5-10.1) Total Bilirubin 0.6 mg/dL (0.2-1.0) 0.6 mg/dL (0.2-1.0) Aspartate Amino Transf (AST/SGOT) 46 U/L (15-37) 51 U/L (15-37) Alanine Aminotransferase (ALT/SGPT) 26 U/L (14-59) 28 U/L (14-59) Alkaline Phosphatase 86 U/L (46-116) 90 U/L (46-116) Total Protein 7.3 g/dL (6.4-8.2) 7.2 g/dL (6.4-8.2) Albumin 3.5 g/dL (3.4-5.0) 3.1 g/dL (3.4-5.0) Albumin/Globulin Ratio 0.9 (1.0-1.7) 0.8 (1.0-1.7) White Blood Count 6.4 x10^3/uL (4.0-11.0) Red Blood Count 4.02 x10^6/uL (3.50-5.40) Hemoglobin 12.9 g/dL (12.0-15.5) Hematocrit 38.5 % (36.0-47.0) Mean Corpuscular Volume 96 fL (79-100) Mean Corpuscular Hemoglobin 32 pg (25-35) Mean Corpuscular Hemoglobin Concent 34 g/dL (31-37) Red Cell Distribution Width 14.0 % (11.5-14.5) Platelet Count 103 x10^3/uL (140-400) Neutrophils (%) (Auto) 75 % (31-73) Lymphocytes (%) (Auto) 20 % (24-48) Monocytes (%) (Auto) 3 % (0-9) Eosinophils (%) (Auto) 1 % (0-3) Basophils (%) (Auto) 1 % (0-3) Neutrophils # (Auto) 4.8 x10^3uL (1.8-7.7) Lymphocytes # (Auto) 1.3 x10^3/uL (1.0-4.8) Monocytes # (Auto) 0.2 x10^3/uL (0.0-1.1) Eosinophils # (Auto) 0.1 x10^3/uL (0.0-0.7) Basophils # (Auto) 0.0 x10^3/uL (0.0-0.2) Lipase 370 U/L (73-393) Assessment and Plan Assessmemt and Plan Problems Medical Problems: (1) Acute renal injury Status: Acute (2) Alcoholic ketoacidosis Status: Acute Problems: Comment Review of Relevant I have reviewed the following items ranjit (where applicable) has been applied. Labs Laboratory Tests Test 02/06/17 19:00 02/07/17 01:00 02/07/17 16:19 02/08/17 03:20 Troponin I Quantitative < 0.017 ng/mL (0.000-0.055) < 0.017 ng/mL (0.000-0.055) Sodium Level 135 mmol/L (136-145) 138 mmol/L (136-145) Potassium Level 3.6 mmol/L (3.5-5.1) 3.0 mmol/L (3.5-5.1) Chloride Level 102 mmol/L (98-107) 104 mmol/L (98-107) Carbon Dioxide Level 17 mmol/L (21-32) 22 mmol/L (21-32) Anion Gap 16 (6-14) 12 (6-14) Blood Urea Nitrogen 9 mg/dL (7-20) 7 mg/dL (7-20) Creatinine 0.8 mg/dL (0.6-1.0) 0.7 mg/dL (0.6-1.0) Estimated GFR (Cockcroft-Gault) 90.8 105.9 BUN/Creatinine Ratio 11 (6-20) 10 (6-20) Glucose Level 123 mg/dL (70-99) 113 mg/dL (70-99) Calcium Level 8.4 mg/dL (8.5-10.1) 8.4 mg/dL (8.5-10.1) Total Bilirubin 0.6 mg/dL (0.2-1.0) 0.6 mg/dL (0.2-1.0) Aspartate Amino Transf (AST/SGOT) 46 U/L (15-37) 51 U/L (15-37) Alanine Aminotransferase (ALT/SGPT) 26 U/L (14-59) 28 U/L (14-59) Alkaline Phosphatase 86 U/L (46-116) 90 U/L (46-116) Total Protein 7.3 g/dL (6.4-8.2) 7.2 g/dL (6.4-8.2) Albumin 3.5 g/dL (3.4-5.0) 3.1 g/dL (3.4-5.0) Albumin/Globulin Ratio 0.9 (1.0-1.7) 0.8 (1.0-1.7) White Blood Count 6.4 x10^3/uL (4.0-11.0) Red Blood Count 4.02 x10^6/uL (3.50-5.40) Hemoglobin 12.9 g/dL (12.0-15.5) Hematocrit 38.5 % (36.0-47.0) Mean Corpuscular Volume 96 fL (79-100) Mean Corpuscular Hemoglobin 32 pg (25-35) Mean Corpuscular Hemoglobin Concent 34 g/dL (31-37) Red Cell Distribution Width 14.0 % (11.5-14.5) Platelet Count 103 x10^3/uL (140-400) Neutrophils (%) (Auto) 75 % (31-73) Lymphocytes (%) (Auto) 20 % (24-48) Monocytes (%) (Auto) 3 % (0-9) Eosinophils (%) (Auto) 1 % (0-3) Basophils (%) (Auto) 1 % (0-3) Neutrophils # (Auto) 4.8 x10^3uL (1.8-7.7) Lymphocytes # (Auto) 1.3 x10^3/uL (1.0-4.8) Monocytes # (Auto) 0.2 x10^3/uL (0.0-1.1) Eosinophils # (Auto) 0.1 x10^3/uL (0.0-0.7) Basophils # (Auto) 0.0 x10^3/uL (0.0-0.2) Lipase 370 U/L (73-393) Laboratory Tests Test 02/07/17 16:19 02/08/17 03:20 Sodium Level 135 mmol/L (136-145) 138 mmol/L (136-145) Potassium Level 3.6 mmol/L (3.5-5.1) 3.0 mmol/L (3.5-5.1) Chloride Level 102 mmol/L (98-107) 104 mmol/L (98-107) Carbon Dioxide Level 17 mmol/L (21-32) 22 mmol/L (21-32) Anion Gap 16 (6-14) 12 (6-14) Blood Urea Nitrogen 9 mg/dL (7-20) 7 mg/dL (7-20) Creatinine 0.8 mg/dL (0.6-1.0) 0.7 mg/dL (0.6-1.0) Estimated GFR (Cockcroft-Gault) 90.8 105.9 BUN/Creatinine Ratio 11 (6-20) 10 (6-20) Glucose Level 123 mg/dL (70-99) 113 mg/dL (70-99) Calcium Level 8.4 mg/dL (8.5-10.1) 8.4 mg/dL (8.5-10.1) Total Bilirubin 0.6 mg/dL (0.2-1.0) 0.6 mg/dL (0.2-1.0) Aspartate Amino Transf (AST/SGOT) 46 U/L (15-37) 51 U/L (15-37) Alanine Aminotransferase (ALT/SGPT) 26 U/L (14-59) 28 U/L (14-59) Alkaline Phosphatase 86 U/L (46-116) 90 U/L (46-116) Total Protein 7.3 g/dL (6.4-8.2) 7.2 g/dL (6.4-8.2) Albumin 3.5 g/dL (3.4-5.0) 3.1 g/dL (3.4-5.0) Albumin/Globulin Ratio 0.9 (1.0-1.7) 0.8 (1.0-1.7) White Blood Count 6.4 x10^3/uL (4.0-11.0) Red Blood Count 4.02 x10^6/uL (3.50-5.40) Hemoglobin 12.9 g/dL (12.0-15.5) Hematocrit 38.5 % (36.0-47.0) Mean Corpuscular Volume 96 fL (79-100) Mean Corpuscular Hemoglobin 32 pg (25-35) Mean Corpuscular Hemoglobin Concent 34 g/dL (31-37) Red Cell Distribution Width 14.0 % (11.5-14.5) Platelet Count 103 x10^3/uL (140-400) Neutrophils (%) (Auto) 75 % (31-73) Lymphocytes (%) (Auto) 20 % (24-48) Monocytes (%) (Auto) 3 % (0-9) Eosinophils (%) (Auto) 1 % (0-3) Basophils (%) (Auto) 1 % (0-3) Neutrophils # (Auto) 4.8 x10^3uL (1.8-7.7) Lymphocytes # (Auto) 1.3 x10^3/uL (1.0-4.8) Monocytes # (Auto) 0.2 x10^3/uL (0.0-1.1) Eosinophils # (Auto) 0.1 x10^3/uL (0.0-0.7) Basophils # (Auto) 0.0 x10^3/uL (0.0-0.2) Lipase 370 U/L (73-393) Medications Current Medications Thiamine Mononitrate (Vitamin B-1) 100 mg ONCE ONCE PO Last administered on 12:36; Start 02/06/17 at 11:15; Stop 02/06/17 at 18:46; Status DC Sodium Chloride 1,000 ml @ 999 mls/hr Q1H1M IV Last administered on 11:36; Start 02/06/17 at 11:15; Stop 02/06/17 at 18:46; Status DC Sodium Chloride 1,000 ml @ 999 mls/hr Q1H1M IV Last administered on 12:58; Start 02/06/17 at 11:15; Stop 02/06/17 at 18:46; Status DC Lorazepam (Ativan) 1 mg 1X ONCE IV Last administered on 02/06/17 11:39; Start 02/06/17 at 11:15; Stop 02/06/17 at 11:16; Status DC Ondansetron HCl (Zofran) 4 mg 1X ONCE IV Last administered on 02/06/17 11:51 ; Start 02/06/17 at 12:00; Stop 02/06/17 at 12:01; Status DC Dextrose/Sodium Chloride 500 ml @ 0 mls/hr 1X ONCE IV Last administered on 13:31; Start 02/06/17 at 13:00; Stop 02/06/17 at 13:01; Status DC Ondansetron HCl (Zofran) 4 mg PRN Q8HRS PRN IV NAUSEA/VOMITING Last administered on 02/06/17 14:57; Start 02/06/17 at 13:00; Stop 02/07/17 at 12 :59; Status DC Acetaminophen (Tylenol) 650 mg PRN Q4HRS PRN PO FEVER Last administered on 19:54; Start 02/06/17 at 13:00; Stop 02/07/17 at 12:59; Status DC Dextrose/Sodium Chloride 500 ml @ 250 mls/hr 1X ONCE IV Last administered on 02/06/17 14:03; Start 02/06/17 at 13:00; Stop 02/06/17 at 14:59; Status DC Multivitamins 10 ml/Thiamine HCl 100 mg/Folic Acid 1 mg/Sodium Chloride 1,011.2 ml @ 100 mls/ hr DAILY IV Last administered on 02/08/17 11:10; Start at 15:30; Stop 02/10/17 at 19:07 Lorazepam (Ativan) 2 mg PRN Q1HR PRN IV For CIWA 8-14 Last administered on 20:49; Start 02/06/17 at 14:45 Lorazepam (Ativan) 4 mg PRN Q1HR PRN IV For CIWA 15 or greater Last administered on 02/06/17 14:58; Start 02/06/17 at 14:45 Haloperidol Lactate (Haldol) 5 mg PRN Q4HRS PRN IVP Hallucinatns,Confusn, Delirium; Start 02/06/17 at 14:45 Diphenhydramine HCl (Benadryl) 25 mg PRN Q15MIN PRN IVP EPS symptoms 2'Haldol admin; Start 02/06/17 at 14:45 Clonidine HCl (Catapres) 0.1 mg PRN Q1HR PRN PO SBP > 180 or DBP > 100, MRX3; Start 02/06/17 at 14:45 Info (Do NOT chart on this placeholder) 1 each PRN 1X PRN MC SEE COMMENTS; Start 02/06/17 at 17:30; Status UNV Influenza Virus Vaccine Quadrival (Fluarix Quad [id number] Syringe) 0.5 ml ONCE ONCE VAX IM Last administered on 02/06/17 18:02; Start 02/06/17 at 18:00; Stop 02/06/17 at 18:01; Status DC Sodium Chloride 1,000 ml @ 125 mls/hr Q8H IV Last administered on 02/08/17 05:12; Start 02/06/17 at 18:45 Pantoprazole Sodium 80 mg/ Sodium Chloride 100 ml @ 10 mls/hr Q10H IV Last administered on 02/08/17 03:10; Start 02/07/17 at 16:00; Stop 02/08/17 at 12 :09; Status DC Atorvastatin Calcium (Lipitor) 20 mg QHS PO ; Start 02/08/17 at 21:00 Lisinopril (Prinivil) 20 mg DAILY PO Last administered on 02/08/17 08:58; Start 02/08/17 at 09:00 Famotidine (Pepcid) 20 mg BID PO Last administered on 02/08/17 08:58; Start 02/08/17 at 09:00 Triamterene/HCTZ (Maxzide 37.5/ 25mg) 1 tab DAILY PO Last administered on 02/08 08:57; Start 02/08/17 at 09:00 Lorazepam (Ativan) 1 mg PRN Q6HRS PRN PO ANXIETY / AGITATION Last administered on 02/08/17 11:09; Start 02/08/17 at 10:45 Acetaminophen/ Hydrocodone Bitart (Lortab 5/325) 1 tab PRN Q4HRS PRN PO PAIN Last administered on 02/08/17 11:10; Start 02/08/17 at 10:45 Amlodipine Besylate (Norvasc) 5 mg [id number] PO Last administered on 02/08/17 11: 10; Start 02/08/17 at 11:00 Polyethylene Glycol (miraLAX PACKET) 17 gm DAILY PO Last administered on 14:19; Start 02/08/17 at 13:00 Bisacodyl (Dulcolax Tab) 5 mg PRN DAILY PRN PO CONSTIPATION; Start 02/08/17 at 12:15 Active Scripts Active Atorvastatin Calcium 20 Mg Tablet 20 Mg PO QHS Reported Triamterene-Hctz 37.5-25 Mg Cp (Triamterene/Hydrochlorothiazid) 1 Each Capsule 1 Cap PO DAILY Ranitidine Hcl 300 Mg Capsule 1 Cap PO BID Lisinopril 20 Mg Tablet 1 Tab PO DAILY Vitals/I & O Vital Sign - Last 24 Hours 02/07/17 02/07/17 02/07/17 02/07/17 15:00 19:05 20:00 23:05 Temp 98.0 99.0 98.1 98.0 99.0 98.1 Pulse 86 90 86 Resp 18 17 17 B/P (MAP) 128/84 (99) 134/84 (101) 148/91 (110) Pulse Ox 98 98 99 O2 Delivery Room Air Room Air Room Air Room Air 02/08/17 02/08/17 02/08/17 02/08/17 03:05 07:00 08:00 08:58 Temp 98.2 98.4 98.2 98.4 Pulse 78 74 74 Resp 17 18 B/P (MAP) 147/93 (111) 175/91 (119) 175/91 Pulse Ox 98 98 O2 Delivery Room Air Room Air Room Air 02/08/17 02/08/17 11:00 11:10 Temp 98.1 98.1 Pulse 96 96 Resp 18 B/P (MAP) 163/95 (117) 163/95 Pulse Ox 98 O2 Delivery Room Air Intake and Output 02/07/17 02/07/17 02/08/17 15:00 23:00 07:00 Intake Total 500 ml 100 ml Balance 500 ml 100 ml TALI YUN MD Feb 08, 2017 14:28
[2017-02-08 15:00] VITALS: BP 154/86
[2017-02-08] MEDS ORDERED: MAGNESIUM SULFATE 2GM 50 ML IV SCH (15:00)
[2017-02-08] MEDS ORDERED: IOHEXOL 240 MG/ML 100 ML VIAL. IV ONE (15:45)
[2017-02-08] MEDS ORDERED: IOHEXOL 300 MG/ML 50 ML VIAL. PO ONE (15:45)
[2017-02-08] MEDS ORDERED: CONTRAST GIVEN MC PRN (15:45)
[2017-02-08] MEDS ORDERED: IOHEXOL 300 MG/ML 100ML VIAL. ONE (16:06)
[2017-02-08] MEDS ORDERED: IOHEXOL 240 MG/ML 50ML VIAL. ONE (16:06)
[2017-02-08 19:44] VITALS: BP 166/97
[2017-02-08] MEDS: POTASSIUM & SODIUM PHOSPHATES PACKET. PO SCH (20:17)
[2017-02-08] MEDS ORDERED: ATORVASTATIN CALCIUM 20 MG TABLET PO SCH (21:00)
[2017-02-08 23:23] VITALS: BP 133/74
[2017-02-09 03:30] VITALS: BP 135/85
[2017-02-09 05:09] LABS: BASO % 0 % (0-3); EOS % 3 % (0-3); HEMATOCRIT 38.2 % (36.0-47.0); HEMOGLOBIN 12.7 g/dL (12.0-15.5); LYMPH # 1.4 x10^3/uL (1.0-4.8); LYMPH % 23 % (24-48); MEAN CORPUSCULAR HEMOGLOBIN 32 pg (25-35); MEAN CORPUSCULAR HGB CONC 33 g/dL (31-37); MEAN CORPUSCULAR VOLUME 95 fL (79-100); MONO % 3 % (0-9); NEUT % 71 % (31-73); PLATELET COUNT 120 x10^3/uL (140-400); RED BLOOD COUNT 4.01 x10^6/uL (3.50-5.40); RED CELL DISTRIBUTION WIDTH 13.7 % (11.5-14.5); WHITE BLOOD COUNT 6.1 x10^3/uL (4.0-11.0)
[2017-02-09 05:45] LABS: CALCIUM 8.4 mg/dL (8.5-10.1); CREATININE 0.6 mg/dL (0.6-1.0); GFR 126.5; PHOSPHORUS 1.8 mg/dL (2.6-4.7)
[2017-02-09 05:47] LABS: POTASSIUM 2.8 mmol/L (3.5-5.1)
[2017-02-09] MEDS ORDERED: POTASSIUM CHLORIDE 10 MEQ TABLET.ER. PO ONE (06:30)
[2017-02-09] MEDS ORDERED: POTASSIUM CHLORIDE 20 MEQ TABLET.ER. PO ONE (06:30)
[2017-02-09 06:55] VITALS: BP 164/86
[2017-02-09] MEDS ORDERED: THIAMINE 100 MG TABLET. PO SCH (09:00)
[2017-02-09] MEDS ORDERED: FOLIC ACID 1 MG TABLET. PO SCH (09:00)
[2017-02-09] MEDS ORDERED: MULTIVITAMIN with MINERAL TABLET. PO SCH (09:00)
--- NOTE | 2017-02-09 09:17 | RAD ---
CT abdomen pelvis with contrast History: Alcohol withdrawal, mid abdominal pain Comparison: 03/27/2015. Technique: After administration of intravenous and oral contrast, CT imaging was performed of the abdomen and pelvis, multiplanar reconstruction images submitted. Exposure: One or more of the following individualized dose reduction techniques were utilized for this exam: 1. Automated exposure control.2. Adjustment of the mA and/or KV according to patient size.3. Use of iterative reconstruction technique. Findings: There is again focus of slightly nodular appearing density with adjacent linear density of the right lower lobe near the base, not significantly changed and present dating back to 2011. There is no new abnormality of the visualized lung bases. No new focal abnormality is identified of the spleen, pancreas, liver. There is likely hepatic steatosis. Gallbladder is present without obvious intraluminal abnormality by CT. Both kidneys enhance without hydronephrosis. There is again small likely adenoma of the right adrenal gland up to 1.3 cm. There is no left adrenal nodularity. Bowel is not significantly dilated. There is no free air. Normal appendix is visualized. There is trace quantity of nonspecific free fluid in the dependent right pelvis. There is no significant inflammatory type change about the bowel. There is again small fat-containing umbilical hernia, focus of somewhat round density 0.8 cm in internal fluid density characteristics. There is again some fat in the inguinal canals greater on the right, no bowel. There is some scattered atherosclerotic calcification of the abdominal aorta and iliac arteries, also of the proximal right renal artery. Portal vein enhances normally. Impression: 1. No significant acute abnormality is identified, trace quantity of nonspecific dependent free fluid in the right pelvis. 2. There is hepatic steatosis. 3. There is stable focus of somewhat nodular density right lower lobe although present dating back to 2011. 4. There is right adrenal adenoma. 5. There is again small fat-containing umbilical hernia, also some fat in the inguinal canals greater on the right.
[2017-02-09] MEDS: HYDROcodone/APAP 5/325MG 1 TAB TABLET PO PRN (09:45)
[2017-02-09] MEDS: TRIAMTERENE/HCTZ 37.5/25MG TABLET. PO SCH (09:45)
[2017-02-09] MEDS: POLYETHYLENE GLYCOL 3350 17 GM PACKET. PO SCH (09:45)
[2017-02-09] MEDS: POTASSIUM & SODIUM PHOSPHATES PACKET. PO SCH (09:46)
[2017-02-09] MEDS: LISINOPRIL 20 MG TABLET PO SCH (09:47)
[2017-02-09] MEDS: amLODIPine BESYLATE 5 MG TABLET PO SCH (09:47)
[2017-02-09] MEDS: FAMOTIDINE 20 MG TABLET. PO SCH (09:48)
[2017-02-09 10:36] VITALS: BP 144/88
--- NOTE | 2017-02-09 14:06 | PDOC ---
PROGRESS NOTES Chief Complaint Chief Complaint ASSESSMENT AND PLAN: 1. Alcohol toxicity: CIWA protocol. Hx DTs in past 2. Epigastric pain: prob alcohol induced gastritis. PPI, TUMS. GI consult 3. stress and anxiety, work related 4. THC abuse History of Present Illness History of Present Illness feels better. afraid of going back to work due to amount of stress there. Vitals Vitals Vital Signs Date Time Temp Pulse Resp B/P (MAP) Pulse Ox O2 Delivery O2 Flow Rate FiO2 02/09/17 10:58 99 Room Air 02/09/17 10:36 98.0 80 17 144/88 (106) 98.0 Physical Exam General: Alert, Cooperative, No acute distress Heart: Regular rate Lungs: Clear Abdomen: Normal bowel sounds, Soft, Other (mild TTP in epigastrium) Extremities: No clubbing, No cyanosis, No tenderness/swelling Skin: No rashes Labs LABS Laboratory Tests Test 02/09/17 03:40 White Blood Count 6.1 x10^3/uL (4.0-11.0) Red Blood Count 4.01 x10^6/uL (3.50-5.40) Hemoglobin 12.7 g/dL (12.0-15.5) Hematocrit 38.2 % (36.0-47.0) Mean Corpuscular Volume 95 fL (79-100) Mean Corpuscular Hemoglobin 32 pg (25-35) Mean Corpuscular Hemoglobin Concent 33 g/dL (31-37) Red Cell Distribution Width 13.7 % (11.5-14.5) Platelet Count 120 x10^3/uL (140-400) Neutrophils (%) (Auto) 71 % (31-73) Lymphocytes (%) (Auto) 23 % (24-48) Monocytes (%) (Auto) 3 % (0-9) Eosinophils (%) (Auto) 3 % (0-3) Basophils (%) (Auto) 0 % (0-3) Neutrophils # (Auto) 4.3 x10^3uL (1.8-7.7) Lymphocytes # (Auto) 1.4 x10^3/uL (1.0-4.8) Monocytes # (Auto) 0.2 x10^3/uL (0.0-1.1) Eosinophils # (Auto) 0.2 x10^3/uL (0.0-0.7) Basophils # (Auto) 0.0 x10^3/uL (0.0-0.2) Sodium Level 139 mmol/L (136-145) Potassium Level 2.8 mmol/L (3.5-5.1) Chloride Level 102 mmol/L (98-107) Carbon Dioxide Level 24 mmol/L (21-32) Anion Gap 13 (6-14) Blood Urea Nitrogen 5 mg/dL (7-20) Creatinine 0.6 mg/dL (0.6-1.0) Estimated GFR (Cockcroft-Gault) 126.5 Glucose Level 100 mg/dL (70-99) Calcium Level 8.4 mg/dL (8.5-10.1) Phosphorus Level 1.8 mg/dL (2.6-4.7) JESSICA MARROQUIN MD Feb 09, 2017 14:06
[2017-02-09] MEDS ORDERED: ATOR20TA58 PO (14:44)
[2017-02-09] MEDS ORDERED: HYDR-2758 PO (14:44)
[2017-02-09] MEDS ORDERED: LISI-334 PO (14:44)
[2017-02-09] MEDS ORDERED: TRIA1CAP3 PO (14:44)
[2017-02-09] MEDS ORDERED: RANI300C PO (14:44)
--- NOTE | 2017-02-10 17:00 | DS ---
DATE OF DISCHARGE: 02/09/2017 CHIEF COMPLAINT: Dehydration, nausea. HOSPITAL COURSE: The patient is a 51-year-old woman who presented with dehydration, nausea and was found with positive alcohol level. She was placed on CIWA protocol, although did not have any symptoms during current admission. Epigastric pain was thought to be alcohol-induced gastritis and was treated with PPI and Tums. She was discharged to home once symptoms were resolved. PHYSICAL EXAMINATION: VITAL SIGNS: Show a blood pressure of 144/88, heart rate of 80, respiratory rate at 17. She is afebrile. GENERAL: Alert and oriented, no acute distress. LUNGS: Clear. HEART: Regular rate and rhythm. ABDOMEN: Positive bowel sounds, soft, mild tenderness to palpation in the epigastric area. EXTREMITIES: Show no edema. DISCHARGE DIAGNOSIS: Gastritis. DISCHARGE DISPOSITION: To home. DISCHARGE CONDITION: Improved. DISCHARGE MEDICATIONS: Please refer to MAR. DISCHARGE INSTRUCTIONS: The patient will follow up with PCP in 1-2 weeks. JESSICA MARROQUIN MD DR: AAMIR/nts JOB#: [id number] / [id number] DAVE
== END 2017-02-09 15:40 | disposition home or self-care (01) | DRG 392 ==
LOC: ER 10:32 → 6 SOUTH 12:57
PROVIDERS: ADMIT Internal Medicine; ATTEND Internal Medicine
DX: K29.20 Alcoholic gastritis without bleeding (principal); N17.9 Acute kidney failure, unspecified; D69.6 Thrombocytopenia, unspecified; E87.2 Acidosis; K86.1 Other chronic pancreatitis; F10.239 Alcohol dependence with withdrawal, unspecified; E86.0 Dehydration; F12.10 Cannabis abuse, uncomplicated; F41.9 Anxiety disorder, unspecified; I10 Essential (primary) hypertension; K21.9 Gastro-esophageal reflux disease without esophagitis; Z82.49 Family history of ischemic heart disease and other diseases of the circulatory system; Z98.51 Tubal ligation status; Z80.9 Family history of malignant neoplasm, unspecified; K59.00 Constipation, unspecified
CPT/HCPCS: 36415; 70450; 71010; 74177; 76700; 80047; 80048; 80053; 80307; 81001; 83690; 84100; 84484; 85007; 85025; 90686; 93005; 96374; 96375; C9113; J2060; J2405; J7030; J7042; J7060; Q9966; Q9967; 99285-25; G0479

== ENCOUNTER 2018-04-06 09:35 | Inpatient (IN) | payer SELFPAY ==
[~2018-04-06] VITALS: Ht 160 cm; Wt 49.0 kg
[~2018-04-06 09:35] MED LIST changes: +HYDR-2761 PO
[2018-04-06] MEDS ORDERED: IV NORMAL SALINE 1000ML BAG 1,000 ML IV ONE (10:00)
[2018-04-06] MEDS ORDERED: ONDANSETRON PF 4 MG/2 ML VIAL. IV ONE (10:00)
--- NOTE | 2018-04-06 10:48 | PHYS DOC ---
Past Medical History Past Medical History: Alcoholism, GERD, Hypertension, Pancreatitis Past Surgical History: Tubal ligation Alcohol Use: Heavy Drug Use: Marijuana Adult General Chief Complaint Chief Complaint: WITHDRAWL HPI HPI Patient is a 52 year old female who presents with alcohol withdrawal. Patient states she normally drinks about 2/5 of hard liquor every day. She started drinking yesterday around noon. Since then, she has had nausea and vomiting and some diarrhea along with some shakiness and chills. Patient states she does have a prior history of alcohol withdrawal seizures. She does not take seizure medication. She denies fever or chills. No chest pain. She reports that she has previously required admission to the hospital several times for this complaint but has never required ICU admission or intubation. Review of Systems Review of Systems Constitutional: Denies fever or chills Eyes: Denies change in visual acuity Respiratory: Denies cough or shortness of breath Cardiovascular: No additional information not addressed in HPI GI: + nausea and vomiting. + diarrhea : Denies dysuria or hematuria Musculoskeletal: Denies back pain or joint pain Integument: Denies rash or skin lesions Neurologic: Denies headache Endocrine: Denies polyuria All other systems were reviewed and found to be within normal limits, except as documented in this note. Current Medications Current Medications Current Medications Medications (Trade) Dose Ordered Sig/[facility] Start Time Stop Time Status Last Admin Dose Admin Acetaminophen (Tylenol) 650 mg PRN Q4HRS PRN 04/06/18 14:30 04/07/18 14:29 Lorazepam (Ativan) 1 mg 1X ONCE 04/06/18 12:00 04/06/18 12:01 DC 04/06/18 12:00 1 MG Multivitamins 10 ml/Thiamine HCl 100 mg/Folic Acid 1 mg/Sodium Chloride 1,011.2 ml @ 1,000.088 mls/hr 1X ONCE 04/06/18 14:00 04/06/18 15:00 04/06/18 14:11 1,000.088 MLS/HR Ondansetron HCl (Zofran) 4 mg PRN Q8HRS PRN 04/06/18 14:30 04/07/18 14:29 Sodium Chloride 1,000 ml @ 1,000 mls/hr 1X ONCE 04/06/18 10:00 04/06/18 10:59 DC 04/06/18 11:06 1,000 MLS/HR Allergies Allergies Allergies Coded Allergies Type Severity Reaction Last Updated Verified No Known Drug Allergies 03/27/15 No Physical Exam Physical Exam Constitutional: Well developed, well nourished, no acute distress, non-toxic appearance HENT: Normocephalic, atraumatic, bilateral external ears normal, oropharynx moist Eyes: PERRLA, EOMI, conjunctiva normal Neck: Normal range of motion, no tenderness Cardiovascular: mildly tachy heart rate, regular rhythm, no murmur Lungs & Thorax: Bilateral breath sounds clear to auscultation Abdomen: Bowel sounds normal, soft, no tenderness Skin: Warm, dry, no erythema, no rash Back: No tenderness Extremities: No tenderness, no edema Neurologic: Alert and oriented X 3, normal motor function, normal sensory function Psychologic: Affect normal, judgement normal Current Patient Data Vital Signs Vital Signs Date Time Temp Pulse Resp B/P (MAP) Pulse Ox O2 Delivery O2 Flow Rate FiO2 04/06/18 13:49 108 20 48/74 (65) 04/06/18 10:49 99 04/06/18 10:19 Room Air 04/06/18 09:47 98.2 98.2 Lab Values Laboratory Tests Test 04/06/18 10:50 White Blood Count 8.7 x10^3/uL (4.0-11.0) Red Blood Count 3.47 x10^6/uL (3.50-5.40) L Hemoglobin 12.2 g/dL (12.0-15.5) Hematocrit 35.9 % (36.0-47.0) L Mean Corpuscular Volume 103 fL (79-100) H Mean Corpuscular Hemoglobin 35 pg (25-35) Mean Corpuscular Hemoglobin Concent 34 g/dL (31-37) Red Cell Distribution Width 13.4 % (11.5-14.5) Platelet Count 240 x10^3/uL (140-400) Neutrophils (%) (Auto) 85 % (31-73) H Lymphocytes (%) (Auto) 8 % (24-48) L Monocytes (%) (Auto) 6 % (0-9) Eosinophils (%) (Auto) 0 % (0-3) Basophils (%) (Auto) 1 % (0-3) Neutrophils # (Auto) 7.4 x10^3uL (1.8-7.7) Lymphocytes # (Auto) 0.7 x10^3/uL (1.0-4.8) L Monocytes # (Auto) 0.5 x10^3/uL (0.0-1.1) Eosinophils # (Auto) 0.0 x10^3/uL (0.0-0.7) Basophils # (Auto) 0.0 x10^3/uL (0.0-0.2) Segmented Neutrophils % 73 % (35-66) H Band Neutrophils % 15 % (0-9) H Lymphocytes % 7 % (24-48) L Monocytes % 5 % (0-10) Platelet Estimate Adequate (ADEQUATE) Sodium Level 135 mmol/L (136-145) L Potassium Level 5.1 mmol/L (3.5-5.1) Chloride Level 90 mmol/L (98-107) L Carbon Dioxide Level 8 mmol/L (21-32) *L Anion Gap 37 (6-14) H Blood Urea Nitrogen 50 mg/dL (7-20) H Creatinine 2.1 mg/dL (0.6-1.0) H Estimated GFR (Cockcroft-Gault) 29.7 Glucose Level 118 mg/dL (70-99) H Calcium Level 9.1 mg/dL (8.5-10.1) Magnesium Level 1.7 mg/dL (1.8-2.4) L Ethyl Alcohol Level < 10 mg/dL (0-10) Laboratory Tests 04/06/18 10:50 Laboratory Tests 04/06/18 10:50 EKG EKG [] Radiology/Procedures Radiology/Procedures [] Course & Med Decision Making Course & Med Decision Making Pertinent Labs and Imaging studies reviewed. (See chart for details) Patient was evaluated immediately on arrival to the ER. 14:00: Patient was observed in the emergency department for several hours. Attempts are made to improve her symptoms so that she could go home. She was given multiple doses of Ativan but she continued to feel shaky. Her heart rate did improve down to 110 but she remained tachycardic. Patient received 1 L normal saline bolus followed by a liter of banana bag. Her lab panel was revealing, however, for significant elevation of creatinine. Patient is likely dehydrated. She does not have prior evidence of kidney disease on review of electronic medical record. Plan is for admission to the hospital. I spoke to Dr. Crocker who will primarily admit. The patient is agreeable to the plan of care. No acute events during the ER course. Dragdunia Disclaimer Dragon Disclaimer This electronic medical record was generated, in whole or in part, using a voice recognition dictation system. Departure Departure Disposition: 09 ADMITTED INPATIENT Condition: GOOD Referrals: NO PCP (PCP) LORENZO CHAVEZ DO Apr 06, 2018 10:48
[2018-04-06 11:08] LABS: BASO % 1 % (0-3); EOS % 0 % (0-3); HEMATOCRIT 35.9 % (36.0-47.0); HEMOGLOBIN 12.2 g/dL (12.0-15.5); LYMPH # 0.7 x10^3/uL (1.0-4.8); LYMPH % 8 % (24-48); MEAN CORPUSCULAR HEMOGLOBIN 35 pg (25-35); MEAN CORPUSCULAR HGB CONC 34 g/dL (31-37); MEAN CORPUSCULAR VOLUME 103 fL (79-100); MONO # 0.5 x10^3/uL (0.0-1.1); MONO % 6 % (0-9); NEUT # 7.4 x10^3uL (1.8-7.7); NEUT % 85 % (31-73); PLATELET COUNT 240 x10^3/uL (140-400); RED BLOOD COUNT 3.47 x10^6/uL (3.50-5.40); RED CELL DISTRIBUTION WIDTH 13.4 % (11.5-14.5); WHITE BLOOD COUNT 8.7 x10^3/uL (4.0-11.0)
[2018-04-06 11:19] LABS: CALCIUM 9.1 mg/dL (8.5-10.1); CREATININE 2.1 mg/dL (0.6-1.0); GFR 29.7; MAGNESIUM 1.7 mg/dL (1.8-2.4); POTASSIUM 5.1 mmol/L (3.5-5.1)
[2018-04-06 12:21] LABS: % BANDS 15 % (0-9); % LYMPHS 7 % (24-48); % MONOS 5 % (0-10); % SEGS 73 % (35-66)
[2018-04-06 12:22] LABS: PLT ESTIMATE ADEQUATE (ADEQUATE)
--- NOTE | 2018-04-06 12:38 | PDOC1 ---
History and Physical Date of Admission Date of Admission DATE: 04/06/18 TIME: 12:37 Identification/Chief Complaint Chief Complaint seen in er with 52 year old female who presents with alcohol withdrawal. Patient states she normally drinks about 2/5 of hard liquor every day, started drinking yesterday around noon. she has had nausea and vomiting and some diarrhea along with some shakiness and chills. Patient states she does have a prior history of alcohol withdrawal seizures. denies fever or chills. No chest pain. tachy in er labs suggest ARF/MURPHY reports that she has previously required admission to the hospital several times for this complaint but has never required ICU admission or intubation. Past Medical History Past Medical History Past Medical History Past Medical History: Alcoholism, GERD, Hypertension, Pancreatitis Past Surgical History: Tubal ligation Alcohol Use: Heavy, hx DT'S Drug Use: Marijuana family hx htn Pulmonary: Bronchitis Psych: Addictions Musculoskeletal: low back pain ENT: No pertinent hx Dermatology: No pertinent hx Social History Smoke: <1 pack per day ALCOHOL: heavy Drugs: Marijuana Current Medications Current Medications Current Medications Lorazepam (Ativan) 0.5 mg 1X ONCE IV Last administered on 04/06/18at 11:06; Start 04/06/18 at 10:00; Stop 04/06/18 at 10:01; Status DC Ondansetron HCl (Zofran) 4 mg 1X ONCE IV Last administered on 04/06/18at 11:05 ; Start 04/06/18 at 10:00; Stop 04/06/18 at 10:01; Status DC Sodium Chloride 1,000 ml @ 1,000 mls/hr 1X ONCE IV Last administered on at 11:06; Start 04/06/18 at 10:00; Stop 04/06/18 at 10:59; Status DC Lorazepam (Ativan) 1 mg 1X ONCE IV Last administered on 04/06/18at 12:00; Start 04/06/18 at 12:00; Stop 04/06/18 at 12:01; Status DC Active Scripts Active Hydrocodone-Apap 5-325 (Hydrocodone Bit/Acetaminophen) 1 Each Tablet 1 Tab PO PRN Q4HRS PRN Atorvastatin Calcium 20 Mg Tablet 20 Mg PO QHS Triamterene-Hctz 37.5-25 Mg Cp (Triamterene/Hydrochlorothiazid) 1 Each Capsule 1 Cap PO DAILY Ranitidine Hcl 300 Mg Capsule 1 Cap PO BID Lisinopril 20 Mg Tablet 1 Tab PO DAILY Allergies Allergies: Coded Allergies: No Known Drug Allergies (Unverified , 03/27/15) ROS Review of System Review of Systems Review of Systems Constitutional: Denies fever or chills Eyes: Denies change in visual acuity Respiratory: Denies cough or shortness of breath Cardiovascular: No additional information not addressed in HPI GI: + nausea and vomiting. + diarrhea : Denies dysuria or hematuria Musculoskeletal: Denies back pain or joint pain Integument: Denies rash or skin lesions Neurologic: Denies headache Endocrine: Denies polyuria 14 pt systems were reviewed and found to be within normal limits, except as documented PSYCHOLOGICAL ROS: YES: Anxiety Eyes: No Blurry vision, No Decreased vision, No Double vision, No Dry eyes, No Excessive tearing, No Eye Pain, No Itchy Eyes, No Loss of vision, No Photophobia , No Scotomata, No Uses contacts, No Uses glasses, No Other ALLERGY AND IMMUNOLOGY: No: Hives, Insect Bite Sensitivity, Itchy/Watery Eyes, Nasal Congestion, Post Nasal Drip, Seasonal Allergies, Other Hematological and Lymphatic: No: Bleeding Problems, Blood Clots, Blood Transfusions, Brusing, Night Sweats, Pallor, Swollen Lymph Nodes, Other Respiratory: No: Cough, Hemoptysis, Orthopnea, Pleuritic Pain, Shortness of breath, SOB with excertion, Sputum Changes, Stridor, Tachypnea, Wheezing, Other Gastrointestinal: Yes Nausea, Yes Vomiting Musculoskeletal: Yes Muscular Weakness Neurological: Yes Dizziness Skin: No Dry Skin, No Eczema, No Hair Changes, No Lumps, No Mole Changes, No Mottling, No Nail Changes, No Pruritus, No Rash, No Skin Lesion Changes, No Other, No Acne Physical Exam Physical Exam Physical Exam Physical Exam Constitutional: Well developed, well nourished, no acute distress, non-toxic appearance slight tremor HENT: Normocephalic, atraumatic, bilateral external ears normal, oropharynx moist Eyes: PERRLA, EOMI, conjunctiva normal Neck: Normal range of motion, no tenderness Cardiovascular: mildly tachy heart rate, regular rhythm, no murmur Lungs & Thorax: Bilateral breath sounds clear to auscultation Abdomen: Bowel sounds normal, soft, no tenderness Skin: Warm, dry, no erythema, no rash Back: No tenderness Extremities: No tenderness, no edema Neurologic: Alert and oriented X 3, normal motor function, normal sensory function Psychologic: Affect normal, judgement normal General: Alert, Oriented X3, Cooperative, mild distress HEENT: Atraumatic, PERRLA, EOMI, Mucous membr. moist/pink Lungs: Clear to auscultation, Normal air movement Heart: S1S2, RRR, no thrills, no murmurs, other (tachy) Cardiovascular: S1, S2 Breasts: Not examined Abdomen: Soft Rectal Exam: not examined Extremities: No clubbing, No cyanosis Skin: No breakdown Neuro: Normal speech, Strength at 5/5 X4 ext, Cranial nerves 3-12 NL Psych/Mental Status: Mental status NL, Mood NL Vitals Vitals Vital Signs Date Time Temp Pulse Resp B/P (MAP) Pulse Ox O2 Delivery O2 Flow Rate FiO2 04/06/18 09:47 98.2 20 174/68 (103) 99 Room Air 98.2 Labs Labs Laboratory Tests Test 04/06/18 10:50 White Blood Count 8.7 x10^3/uL (4.0-11.0) Red Blood Count 3.47 x10^6/uL (3.50-5.40) Hemoglobin 12.2 g/dL (12.0-15.5) Hematocrit 35.9 % (36.0-47.0) Mean Corpuscular Volume 103 fL (79-100) Mean Corpuscular Hemoglobin 35 pg (25-35) Mean Corpuscular Hemoglobin Concent 34 g/dL (31-37) Red Cell Distribution Width 13.4 % (11.5-14.5) Platelet Count 240 x10^3/uL (140-400) Neutrophils (%) (Auto) 85 % (31-73) Lymphocytes (%) (Auto) 8 % (24-48) Monocytes (%) (Auto) 6 % (0-9) Eosinophils (%) (Auto) 0 % (0-3) Basophils (%) (Auto) 1 % (0-3) Neutrophils # (Auto) 7.4 x10^3uL (1.8-7.7) Lymphocytes # (Auto) 0.7 x10^3/uL (1.0-4.8) Monocytes # (Auto) 0.5 x10^3/uL (0.0-1.1) Eosinophils # (Auto) 0.0 x10^3/uL (0.0-0.7) Basophils # (Auto) 0.0 x10^3/uL (0.0-0.2) Segmented Neutrophils % 73 % (35-66) Band Neutrophils % 15 % (0-9) Lymphocytes % 7 % (24-48) Monocytes % 5 % (0-10) Platelet Estimate Adequate (ADEQUATE) Sodium Level 135 mmol/L (136-145) Potassium Level 5.1 mmol/L (3.5-5.1) Chloride Level 90 mmol/L (98-107) Carbon Dioxide Level 8 mmol/L (21-32) Anion Gap 37 (6-14) Blood Urea Nitrogen 50 mg/dL (7-20) Creatinine 2.1 mg/dL (0.6-1.0) Estimated GFR (Cockcroft-Gault) 29.7 Glucose Level 118 mg/dL (70-99) Calcium Level 9.1 mg/dL (8.5-10.1) Magnesium Level 1.7 mg/dL (1.8-2.4) Ethyl Alcohol Level < 10 mg/dL (0-10) Laboratory Tests Test 04/06/18 10:50 White Blood Count 8.7 x10^3/uL (4.0-11.0) Red Blood Count 3.47 x10^6/uL (3.50-5.40) Hemoglobin 12.2 g/dL (12.0-15.5) Hematocrit 35.9 % (36.0-47.0) Mean Corpuscular Volume 103 fL (79-100) Mean Corpuscular Hemoglobin 35 pg (25-35) Mean Corpuscular Hemoglobin Concent 34 g/dL (31-37) Red Cell Distribution Width 13.4 % (11.5-14.5) Platelet Count 240 x10^3/uL (140-400) Neutrophils (%) (Auto) 85 % (31-73) Lymphocytes (%) (Auto) 8 % (24-48) Monocytes (%) (Auto) 6 % (0-9) Eosinophils (%) (Auto) 0 % (0-3) Basophils (%) (Auto) 1 % (0-3) Neutrophils # (Auto) 7.4 x10^3uL (1.8-7.7) Lymphocytes # (Auto) 0.7 x10^3/uL (1.0-4.8) Monocytes # (Auto) 0.5 x10^3/uL (0.0-1.1) Eosinophils # (Auto) 0.0 x10^3/uL (0.0-0.7) Basophils # (Auto) 0.0 x10^3/uL (0.0-0.2) Segmented Neutrophils % 73 % (35-66) Band Neutrophils % 15 % (0-9) Lymphocytes % 7 % (24-48) Monocytes % 5 % (0-10) Platelet Estimate Adequate (ADEQUATE) Sodium Level 135 mmol/L (136-145) Potassium Level 5.1 mmol/L (3.5-5.1) Chloride Level 90 mmol/L (98-107) Carbon Dioxide Level 8 mmol/L (21-32) Anion Gap 37 (6-14) Blood Urea Nitrogen 50 mg/dL (7-20) Creatinine 2.1 mg/dL (0.6-1.0) Estimated GFR (Cockcroft-Gault) 29.7 Glucose Level 118 mg/dL (70-99) Calcium Level 9.1 mg/dL (8.5-10.1) Magnesium Level 1.7 mg/dL (1.8-2.4) Ethyl Alcohol Level < 10 mg/dL (0-10) VTE Prophylaxis Ordered VTE Prophylaxis Devices: Yes VTE Pharmacological Prophylaxi: Yes Assessment/Plan Assessment/Plan ASSESSMENT AND PLAN: 1. Alcohol toxicity: CIWA protocol. Hx DTs in past 2. Epigastric pain: prob alcohol induced gastritis. PPI, GI consult 3. stress and anxiety, work related 4. THC abuse 5. hx htn 6. GERD 7. ACUTE renal failure, pre-renal, dehydration, CR WAS 0.6 02/04 plan tele renal consult alcohol withdrawal prevention protocol thiamine, folic acid banana bag, IV FLUID SUPPORT dvt prophylaxis gi prophylaxis TALI YUN MD Apr 06, 2018 12:38
[2018-04-06] MEDS ORDERED: MULTIVIT INFUSN,ADULT 4,VIT K 10 ML, THIAMINE INJ 100 MG, FOLIC ACID INJ 1 MG in IV NOR... IV ONE ×2 (14:00→15:00)
[2018-04-06] MEDS ORDERED: ACETAMINOPHEN 325 MG TABLET. PO PRN ×2 (14:30→14:45)
[2018-04-06] MEDS ORDERED: ONDANSETRON PF 4 MG/2 ML VIAL. IV PRN ×2 (14:30→14:45)
[2018-04-06] MEDS ORDERED: traMADol 50 MG TABLET PO PRN (14:45)
[2018-04-06] MEDS ORDERED: MORPHINE SULFATE 4 MG/ML VIAL. IV PRN (14:45)
[2018-04-06] MEDS ORDERED: hydrALAZINE 20 MG/ML VIAL. IVP PRN (14:45)
[2018-04-06] MEDS ORDERED: LORazepam 1 MG TABLET PO PRN (14:45)
[2018-04-06] MEDS ORDERED: HYDROcodone/APAP 5/325MG 1 TAB TABLET PO PRN (14:45)
[2018-04-06] MEDS ORDERED: DOCUSATE SODIUM 100 MG CAPSULE. PO PRN (14:45)
[2018-04-06] MEDS ORDERED: IV NORMAL SALINE 1000ML BAG 1,000 ML IV SCH (14:45)
[2018-04-06 14:48] LABS: ALBUMIN 4.5 g/dL (3.4-5.0); DIRECT BILIRUBIN 0.1 mg/dL (0.0-0.2); TOTAL BILIRUBIN 0.6 mg/dL (0.2-1.0); TOTAL PROTEIN 8.8 g/dL (6.4-8.2)
[2018-04-06] MEDS ORDERED: MAGNESIUM SULFATE 2GM 50 ML IV ONE (15:00)
--- NOTE | 2018-04-06 15:40 | RAD ---
Right RIBS, 2 views, 04/06/2018: HISTORY: Fall, pain No acute rib fracture is identified. There is no evidence of right lung infiltrate, pleural fluid or pneumothorax. IMPRESSION: No acute right rib abnormality is detected. Electronically signed by: Ace Gaffney MD (04/06/2018 3:36 PM) [facility]
[2018-04-06 16:00] VITALS: BP 143/75
[2018-04-06 16:52] LABS: BASE EXCESS ABG -11 mmol/L (-3-3); HCO3 ABG 11 mmol/L (21-28); PO2 ABG 104 mmHg (75-108); SAT O2 ABG 97 % (92-99)
[2018-04-06 16:54] LABS: PCO2 ABG 19 mmHg (35-46)
[2018-04-06 16:55] LABS: FIO2 ABG 21
[2018-04-06] MEDS: PANTOPRAZOLE IV PUSH 40 MG VIAL. IVP SCH (16:56)
[2018-04-06] MEDS: SODIUM BICARBONATE VIAL 150 MEQ in IV STERILE WATER 1,000 ML IV SCH (16:57)
[2018-04-06] MEDS: LORazepam 1 MG TABLET PO SCH ×2 (17:01→21:06)
[2018-04-06 19:20] VITALS: BP 136/71
[2018-04-06 21:05] LABS: BILIRUBIN,URINE MODERATE (NEG); CLARITY,URINE CLEAR; COLOR,URINE YELLOW; NITRITE,URINE NEGATIVE (NEG); PH,URINE 5.5; PROTEIN,URINE NEGATIVE (NEG-TRACE); UROBILINOGEN,URINE 0.2 mg/dL (0.2 mg/dL)
[2018-04-06] MEDS: ATORVASTATIN CALCIUM 20 MG TABLET PO SCH (21:06)
[2018-04-06 21:10] LABS: BACTERIA,URINE FEW /HPF (0-FEW); RBC,URINE 0 /HPF (0-2); SQUAMOUS EPITHELIAL CELL,UR MOD /LPF; WBC,URINE 0 /HPF (0-4)
[2018-04-06] MEDS: HEPARIN for SUB-Q USE 5,000 UNIT/ML VIAL. SQ SCH (21:10)
[2018-04-06] MEDS: FAMOTIDINE 20 MG TABLET. PO SCH (21:13)
[2018-04-06 23:15] VITALS: BP 120/75
[2018-04-07 03:20] VITALS: BP 117/75
[2018-04-07] MEDS: LORazepam 1 MG TABLET PO SCH ×4 (03:43→20:19)
[2018-04-07] MEDS: SODIUM BICARBONATE VIAL 150 MEQ in IV STERILE WATER 1,000 ML IV SCH (03:43)
[2018-04-07] MEDS: HEPARIN for SUB-Q USE 5,000 UNIT/ML VIAL. SQ SCH ×3 (06:12→20:23)
[2018-04-07 07:00] VITALS: BP 137/73
[2018-04-07 07:38] LABS: BASO % 0 % (0-3); EOS % 1 % (0-3); HEMATOCRIT 31.9 % (36.0-47.0); HEMOGLOBIN 11.6 g/dL (12.0-15.5); LYMPH % 39 % (24-48); MEAN CORPUSCULAR HEMOGLOBIN 36 pg (25-35); MEAN CORPUSCULAR HGB CONC 36 g/dL (31-37); MEAN CORPUSCULAR VOLUME 99 fL (79-100); MONO # 0.3 x10^3/uL (0.0-1.1); MONO % 6 % (0-9); NEUT # 2.9 x10^3uL (1.8-7.7); NEUT % 55 % (31-73); PLATELET COUNT 164 x10^3/uL (140-400); RED BLOOD COUNT 3.22 x10^6/uL (3.50-5.40); RED CELL DISTRIBUTION WIDTH 13.2 % (11.5-14.5); WHITE BLOOD COUNT 5.2 x10^3/uL (4.0-11.0)
[2018-04-07 08:02] LABS: CALCIUM 8.2 mg/dL (8.5-10.1); CREATININE 1.2 mg/dL (0.6-1.0); GFR 56.6; POTASSIUM 3.7 mmol/L (3.5-5.1)
[2018-04-07] MEDS: PANTOPRAZOLE IV PUSH 40 MG VIAL. IVP SCH (08:14)
--- NOTE | 2018-04-07 08:33 | RAD ---
CLINICAL HISTORY: AKD/CKD COMPARISON: CT 02/08/2017, ultrasound 02/07/2017 TECHNIQUE: Ultrasound examination of the bilateral kidneys and urinary bladder was performed. FINDINGS: The right kidney measures 9.1 cm in bipolar length. The renal cortex is normal in thickness. Renal echogenicity is normal. There is no evidence for hydronephrosis, shadowing renal calculus or focal abnormality . The left kidney measures 10.7 cm in bipolar length. The renal cortex is normal in thickness. Renal echogenicity is normal. There is no evidence for hydronephrosis, shadowing renal calculus or focal abnormality. Visualized aorta and IVC are unremarkable. Images of the partially filled urinary bladder are unremarkable. Of note, there is borderline increased echogenicity of the liver relative to the right kidney, possibly hepatic steatosis. IMPRESSION: 1. The kidneys and bladder are sonographically unremarkable. 2. Borderline increased echogenicity of the liver to the right kidney, may be seen with fatty liver. Electronically signed by: Negro Luis MD (04/07/2018 8:28 AM) [facility]
[2018-04-07] MEDS ORDERED: MULTIVIT INFUSN,ADULT 4,VIT K 10 ML, THIAMINE INJ 100 MG, FOLIC ACID INJ 1 MG in IV NOR... IV SCH (09:00)
[2018-04-07] MEDS ORDERED: MULTIVITAMIN with MINERAL TABLET. PO SCH (09:00)
[2018-04-07] MEDS ORDERED: ENOXAPARIN 40 MG/0.4 ML SYRINGE. SQ SCH (09:00)
[2018-04-07] MEDS ORDERED: THIAMINE 100 MG TABLET. PO SCH (09:00)
[2018-04-07] MEDS ORDERED: FOLIC ACID 1 MG TABLET. PO SCH (09:00)
[2018-04-07] MEDS ORDERED: THIAMINE INJ 100 MG in IV DEXTROSE 5% 50 ML IV SCH (09:00)
[2018-04-07 11:00] VITALS: BP 132/83
--- NOTE | 2018-04-07 13:41 | PDOC2 ---
CONSULT Date of Consult Date of Consult DATE: 04/07/18 TIME: 13:35 Reason for Consult Reason for Consult: Acute renal failure Referring Physician Referring Physician: Dr. Miranda Identification/Chief Complaint Chief Complaint Nausea vomiting diarrhea Source Source: Chart review, Patient History of Present Illness Reason for Visit: Patient is a 52-year-old female with history of alcoholism. She is not aware of known kidney problems. She developed nausea vomiting and diarrhea and presented the ER for further evaluation of the same. In the ER she was noted to have a bicarbonate of 8 BUN of 50 creatinine 2.1. She was felt to be in alcohol withdrawal and we were asked to see her for the electrolyte abnormalities. Today she is feeling much better. IV fluids with bicarbonate were administered. ABGs also noted Past Medical History Pulmonary: Bronchitis Psych: Addictions Musculoskeletal: low back pain ENT: No pertinent hx Dermatology: No pertinent hx Social History <1 pack per day ALCOHOL: heavy Drugs: Marijuana Current Problem List Problem List Problems Medical Problems: (1) Alcohol withdrawal Status: Acute Current Medications Current Medications Current Medications Lorazepam (Ativan) 0.5 mg 1X ONCE IV Last administered on 04/06/18at 11:06; Start 04/06/18 at 10:00; Stop 04/06/18 at 10:01; Status DC Ondansetron HCl (Zofran) 4 mg 1X ONCE IV Last administered on 04/06/18at 11:05 ; Start 04/06/18 at 10:00; Stop 04/06/18 at 10:01; Status DC Sodium Chloride 1,000 ml @ 1,000 mls/hr 1X ONCE IV Last administered on at 11:06; Start 04/06/18 at 10:00; Stop 04/06/18 at 10:59; Status DC Lorazepam (Ativan) 1 mg 1X ONCE IV Last administered on 04/06/18at 12:00; Start 04/06/18 at 12:00; Stop 04/06/18 at 12:01; Status DC Multivitamins 10 ml/Thiamine HCl 100 mg/Folic Acid 1 mg/Sodium Chloride 1,011.2 ml @ 1,000.088 mls/hr 1X ONCE IV Last administered on 04/06/18at 14:11; Start 04/06/18 at 14:00; Stop 04/06/18 at 15:00; Status DC Ondansetron HCl (Zofran) 4 mg PRN Q8HRS PRN IV NAUSEA/VOMITING; Start 04/06/18 at 14:30; Stop 04/07/18 at 14:29 Acetaminophen (Tylenol) 650 mg PRN Q4HRS PRN PO FEVER; Start 04/06/18 at 14:30 ; Stop 04/07/18 at 14:29 Atorvastatin Calcium (Lipitor) 20 mg QHS PO Last administered on 04/06/18at 21: 06; Start 04/06/18 at 21:00 Acetaminophen/ Hydrocodone Bitart (Lortab 5/325) 1 tab PRN Q4HRS PRN PO PAIN; Start 04/06/18 at 14:45 Famotidine (Pepcid) 20 mg QHS PO Last administered on 04/06/18at 21:13; Start at 21:00 Acetaminophen (Tylenol) 650 mg PRN Q6HRS PRN PO FEVER; Start 04/06/18 at 14:45 Ondansetron HCl (Zofran) 4 mg PRN Q6HRS PRN IV NAUSEA/VOMITING; Start 04/06/18 at 14:45 Morphine Sulfate (Morphine Sulfate) 2 mg PRN Q2HR PRN IV MODERATE TO SEVERE PAIN; Start 04/06/18 at 14:45 Tramadol HCl (Ultram) 50 mg PRN Q6HRS PRN PO MILD TO MODERATE PAIN; Start 04/06 at 14:45 Hydralazine HCl (Apresoline Inj) 10 mg PRN Q4HRS PRN IVP ELEVATED BP, SEE COMMENTS; Start 04/06/18 at 14:45 Docusate Sodium (Colace) 100 mg PRN DAILY PRN PO CONSTIPATION; Start 04/06/18 at 14:45 Lorazepam (Ativan) 1 mg PRN Q6HRS PRN PO ANXIETY / AGITATION; Start 04/06/18 at 14:45 Lorazepam (Ativan) 2 mg PRN Q4HRS PRN IV ANXIETY / AGITATION; Start 04/06/18 at 14:45 Sodium Chloride 1,000 ml @ 125 mls/hr Q8H IV Last administered on 04/06/18at 15 :32; Start 04/06/18 at 14:45; Stop 04/06/18 at 16:39; Status DC Magnesium Sulfate 50 ml @ 25 mls/hr 1X ONCE IV Last administered on 04/06/18at 15:32; Start 04/06/18 at 15:00; Stop 04/06/18 at 16:59; Status DC Heparin Sodium (Porcine) (Heparin Sodium) 5,000 unit Q8HRS SQ Last administered on 04/07/18at 06:12; Start 04/06/18 at 22:00 Multivitamins 10 ml/Thiamine HCl 100 mg/Folic Acid 1 mg/Sodium Chloride 1,011.2 ml @ 100 mls/ hr DAILY IV ; Start 04/07/18 at 09:00; Stop 04/11/18 at 19:07; Status UNV Multivitamins (Thera M Plus) 1 tab DAILY PO Last administered on 04/07/18at 08: 14; Start 04/07/18 at 09:00 Folic Acid (Folic Acid) 1 mg DAILY PO Last administered on 04/07/18at 08:15; Start 04/07/18 at 09:00 Thiamine HCl 100 mg/Dextrose 51 ml @ 100 mls/hr DAILY IV ; Start 04/07/18 at 09 :00; Stop 04/11/18 at 09:31; Status UNV Lorazepam (Ativan) 2 mg Q6H PO Last administered on 04/07/18at 08:14; Start at 15:00; Stop 04/07/18 at 21:01 Enoxaparin Sodium (Lovenox 40mg Syringe) 40 mg DAILY SQ ; Start 04/07/18 at 09: 00; Status UNV Pantoprazole Sodium (PROTONIX VIAL for IV PUSH) 40 mg DAILY08 IVP Last administered on 04/07/18at 08:14; Start 04/06/18 at 15:30 Multivitamins 10 ml/Thiamine HCl 100 mg/Folic Acid 1 mg/Sodium Chloride 1,011.2 ml @ 1,000.088 mls/hr 1X ONCE IV ; Start 04/06/18 at 15:00; Stop 04/06/18 at 16:00; Status UNV Thiamine Mononitrate (Vitamin B-1) 100 mg DAILY PO Last administered on at 08:14; Start 04/07/18 at 09:00 Sodium Bicarbonate 150 meq/Sterile Water 1,150 ml @ 125 mls/hr Q9H12M IV Last administered on 04/07/18at 03:43; Start 04/06/18 at 17:00 Active Scripts Active Hydrocodone-Apap 5-325 (Hydrocodone Bit/Acetaminophen) 1 Each Tablet 1 Tab PO PRN Q4HRS PRN Atorvastatin Calcium 20 Mg Tablet 20 Mg PO QHS Triamterene-Hctz 37.5-25 Mg Cp (Triamterene/Hydrochlorothiazid) 1 Each Capsule 1 Cap PO DAILY Ranitidine Hcl 300 Mg Capsule 1 Cap PO BID Lisinopril 20 Mg Tablet 1 Tab PO DAILY Allergies Allergies: Coded Allergies: No Known Drug Allergies (Unverified , 03/27/15) ROS Review of System Negative other than as history of present illness Physical Exam Physical Exam GEN: Awake, Oriented x 3, In no distress EYES: Vision Unchanged, Conjunctiva Normal EN: No EN Drainage, Mucous Membranes mo ist NECK: no JVD, no JVP, Supple, no Thyromegaly CVS: S1S2, no Murmur, No Gallop, No Rub,no Edema RESP: no Rales, no Rhonchi,no Acc. Muscle Use GI: BS + ve, NO Bruit, Non Tender, Non Distended : no CVA tenderness, no Suprapubic Tenderness Vital Signs Vital Signs Date Time Temp Pulse Resp B/P (MAP) Pulse Ox O2 Delivery O2 Flow Rate FiO2 04/07/18 11:00 98.2 78 16 132/83 (99) 98 Room Air 98.2 Assessment & Plan Acute renal failure: Suspect volume depletion this is now resolved Volume Depletion: Suspect due to nausea vomiting and diarrhea. Continue IV fluids for another day or 2 Metabolic acidosis: Suspect due to diarrhea: IV fluids were administered with bicarbonate and this is much better History of alcohol withdrawal: No seizure activity suspected. CPK was normal 158. Alcoholic pancreatitis underlying cannot be ruled out We will be available if needed Labs Labs Laboratory Tests Test 04/06/18 10:50 04/06/18 16:40 04/06/18 17:30 04/06/18 19:30 White Blood Count 8.7 x10^3/uL (4.0-11.0) Red Blood Count 3.47 x10^6/uL (3.50-5.40) Hemoglobin 12.2 g/dL (12.0-15.5) Hematocrit 35.9 % (36.0-47.0) Mean Corpuscular Volume 103 fL (79-100) Mean Corpuscular Hemoglobin 35 pg (25-35) Mean Corpuscular Hemoglobin Concent 34 g/dL (31-37) Red Cell Distribution Width 13.4 % (11.5-14.5) Platelet Count 240 x10^3/uL (140-400) Neutrophils (%) (Auto) 85 % (31-73) Lymphocytes (%) (Auto) 8 % (24-48) Monocytes (%) (Auto) 6 % (0-9) Eosinophils (%) (Auto) 0 % (0-3) Basophils (%) (Auto) 1 % (0-3) Neutrophils # (Auto) 7.4 x10^3uL (1.8-7.7) Lymphocytes # (Auto) 0.7 x10^3/uL (1.0-4.8) Monocytes # (Auto) 0.5 x10^3/uL (0.0-1.1) Eosinophils # (Auto) 0.0 x10^3/uL (0.0-0.7) Basophils # (Auto) 0.0 x10^3/uL (0.0-0.2) Segmented Neutrophils % 73 % (35-66) Band Neutrophils % 15 % (0-9) Lymphocytes % 7 % (24-48) Monocytes % 5 % (0-10) Platelet Estimate Adequate (ADEQUATE) Sodium Level 135 mmol/L (136-145) Potassium Level 5.1 mmol/L (3.5-5.1) Chloride Level 90 mmol/L (98-107) Carbon Dioxide Level 8 mmol/L (21-32) Anion Gap 37 (6-14) Blood Urea Nitrogen 50 mg/dL (7-20) Creatinine 2.1 mg/dL (0.6-1.0) Estimated GFR (Cockcroft-Gault) 29.7 Glucose Level 118 mg/dL (70-99) Calcium Level 9.1 mg/dL (8.5-10.1) Magnesium Level 1.7 mg/dL (1.8-2.4) Total Bilirubin 0.6 mg/dL (0.2-1.0) Direct Bilirubin 0.1 mg/dL (0.0-0.2) Aspartate Amino Transf (AST/SGOT) 50 U/L (15-37) Alanine Aminotransferase (ALT/SGPT) 26 U/L (14-59) Alkaline Phosphatase 118 U/L (46-116) Total Protein 8.8 g/dL (6.4-8.2) Albumin 4.5 g/dL (3.4-5.0) Lipase 50 U/L (73-393) Ethyl Alcohol Level < 10 mg/dL (0-10) O2 Saturation 97 % (92-99) Arterial Blood pH 7.39 (7.35-7.45) Arterial Blood pCO2 at Patient Temp 19 mmHg (35-46) Arterial Blood pO2 at Patient Temp 104 mmHg (75-108) Arterial Blood HCO3 11 mmol/L (21-28) Arterial Blood Base Excess -11 mmol/L (-3-3) FiO2 21 Special Test - Miscellaneous See separate report Lactic Acid Level 1.0 mmol/L (0.4-2.0) Creatine Kinase 158 U/L (26-192) Urine Collection Type Unknown Urine Color Yellow Urine Clarity Clear Urine pH 5.5 Urine Specific [place] 1.020 Urine Protein Negative mg/dL (NEG-TRACE) Urine Glucose (UA) Negative mg/dL (NEG) Urine Ketones (Stick) >=80 mg/dL (NEG) Urine Blood Negative (NEG) Urine Nitrite Negative (NEG) Urine Bilirubin Moderate (NEG) Urine Urobilinogen Dipstick 0.2 mg/dL (0.2 mg/dL) Urine Leukocyte Esterase Negative (NEG) Urine RBC 0 /HPF (0-2) Urine WBC 0 /HPF (0-4) Urine Squamous Epithelial Cells Mod /LPF Urine Bacteria Few /HPF (0-FEW) Test 04/07/18 06:53 04/07/18 06:55 White Blood Count 5.2 x10^3/uL (4.0-11.0) Red Blood Count 3.22 x10^6/uL (3.50-5.40) Hemoglobin 11.6 g/dL (12.0-15.5) Hematocrit 31.9 % (36.0-47.0) Mean Corpuscular Volume 99 fL (79-100) Mean Corpuscular Hemoglobin 36 pg (25-35) Mean Corpuscular Hemoglobin Concent 36 g/dL (31-37) Red Cell Distribution Width 13.2 % (11.5-14.5) Platelet Count 164 x10^3/uL (140-400) Neutrophils (%) (Auto) 55 % (31-73) Lymphocytes (%) (Auto) 39 % (24-48) Monocytes (%) (Auto) 6 % (0-9) Eosinophils (%) (Auto) 1 % (0-3) Basophils (%) (Auto) 0 % (0-3) Neutrophils # (Auto) 2.9 x10^3uL (1.8-7.7) Lymphocytes # (Auto) 2.0 x10^3/uL (1.0-4.8) Monocytes # (Auto) 0.3 x10^3/uL (0.0-1.1) Eosinophils # (Auto) 0.0 x10^3/uL (0.0-0.7) Basophils # (Auto) 0.0 x10^3/uL (0.0-0.2) Sodium Level 137 mmol/L (136-145) Potassium Level 3.7 mmol/L (3.5-5.1) Chloride Level 95 mmol/L (98-107) Carbon Dioxide Level 30 mmol/L (21-32) Anion Gap 12 (6-14) Blood Urea Nitrogen 29 mg/dL (7-20) Creatinine 1.2 mg/dL (0.6-1.0) Estimated GFR (Cockcroft-Gault) 56.6 Glucose Level 116 mg/dL (70-99) Calcium Level 8.2 mg/dL (8.5-10.1) Laboratory Tests Test 04/06/18 16:40 04/06/18 17:30 04/06/18 19:30 04/07/18 06:53 O2 Saturation 97 % (92-99) Arterial Blood pH 7.39 (7.35-7.45) Arterial Blood pCO2 at Patient Temp 19 mmHg (35-46) Arterial Blood pO2 at Patient Temp 104 mmHg (75-108) Arterial Blood HCO3 11 mmol/L (21-28) Arterial Blood Base Excess -11 mmol/L (-3-3) FiO2 21 Special Test - Miscellaneous See separate report Lactic Acid Level 1.0 mmol/L (0.4-2.0) Creatine Kinase 158 U/L (26-192) Urine Collection Type Unknown Urine Color Yellow Urine Clarity Clear Urine pH 5.5 Urine Specific [place] 1.020 Urine Protein Negative mg/dL (NEG-TRACE) Urine Glucose (UA) Negative mg/dL (NEG) Urine Ketones (Stick) >=80 mg/dL (NEG) Urine Blood Negative (NEG) Urine Nitrite Negative (NEG) Urine Bilirubin Moderate (NEG) Urine Urobilinogen Dipstick 0.2 mg/dL (0.2 mg/dL) Urine Leukocyte Esterase Negative (NEG) Urine RBC 0 /HPF (0-2) Urine WBC 0 /HPF (0-4) Urine Squamous Epithelial Cells Mod /LPF Urine Bacteria Few /HPF (0-FEW) White Blood Count 5.2 x10^3/uL (4.0-11.0) Red Blood Count 3.22 x10^6/uL (3.50-5.40) Hemoglobin 11.6 g/dL (12.0-15.5) Hematocrit 31.9 % (36.0-47.0) Mean Corpuscular Volume 99 fL (79-100) Mean Corpuscular Hemoglobin 36 pg (25-35) Mean Corpuscular Hemoglobin Concent 36 g/dL (31-37) Red Cell Distribution Width 13.2 % (11.5-14.5) Platelet Count 164 x10^3/uL (140-400) Neutrophils (%) (Auto) 55 % (31-73) Lymphocytes (%) (Auto) 39 % (24-48) Monocytes (%) (Auto) 6 % (0-9) Eosinophils (%) (Auto) 1 % (0-3) Basophils (%) (Auto) 0 % (0-3) Neutrophils # (Auto) 2.9 x10^3uL (1.8-7.7) Lymphocytes # (Auto) 2.0 x10^3/uL (1.0-4.8) Monocytes # (Auto) 0.3 x10^3/uL (0.0-1.1) Eosinophils # (Auto) 0.0 x10^3/uL (0.0-0.7) Basophils # (Auto) 0.0 x10^3/uL (0.0-0.2) Test 04/07/18 06:55 Sodium Level 137 mmol/L (136-145) Potassium Level 3.7 mmol/L (3.5-5.1) Chloride Level 95 mmol/L (98-107) Carbon Dioxide Level 30 mmol/L (21-32) Anion Gap 12 (6-14) Blood Urea Nitrogen 29 mg/dL (7-20) Creatinine 1.2 mg/dL (0.6-1.0) Estimated GFR (Cockcroft-Gault) 56.6 Glucose Level 116 mg/dL (70-99) Calcium Level 8.2 mg/dL (8.5-10.1) Review All relevant outside records, renal labs, imaging studies, telemetry/EKG's were reviewed. Images Images Renal sonogram IMPRESSION: 1. The kidneys and bladder are sonographically unremarkable. 2. Borderline increased echogenicity of the liver to the right kidney, may be seen with fatty liver. CHRISTELLE MATHUR MD Apr 07, 2018 13:41
[2018-04-07 15:00] VITALS: BP 139/58
[2018-04-07] MEDS: MULTIVIT INFUSN,ADULT 4,VIT K 10 ML, THIAMINE INJ 100 MG, FOLIC ACID INJ 1 MG in IV NOR... IV SCH (15:43)
[2018-04-07 19:20] VITALS: BP 135/79
[2018-04-07] MEDS: FAMOTIDINE 20 MG TABLET. PO SCH (20:19)
[2018-04-07] MEDS: ATORVASTATIN CALCIUM 20 MG TABLET PO SCH (20:20)
[2018-04-07] MEDS ORDERED: ALPRAZolam 0.5 MG TABLET PO PRN (22:00)
--- NOTE | 2018-04-07 22:00 | PDOC ---
PROGRESS NOTES History of Present Illness History of Present Illness SSESSMENT AND PLAN: 1. Alcohol toxicity: CIWA protocol. Hx DTs in past 2. Epigastric pain: prob alcohol induced gastritis. PPI, GI consult 3. stress and anxiety, work related 4. THC abuse 5. hx htn 6. GERD 7. ACUTE renal failure, pre-renal, dehydration, CR WAS 0.6 02/04 plan Monitor kidney function alcohol withdrawal prevention protocol thiamine, folic acid banana bag, IV FLUID SUPPORT dvt prophylaxis gi prophylaxis Xanax for anxiety dc in am Vitals Vitals Vital Signs Date Time Temp Pulse Resp B/P (MAP) Pulse Ox O2 Delivery O2 Flow Rate FiO2 04/07/18 19:20 98.1 79 20 135/79 (97) 98 Room Air 98.1 Physical Exam General: Alert, Oriented X3, Cooperative, mild distress Lungs: Clear Abdomen: Soft Extremities: No clubbing, No cyanosis Skin: No breakdown Labs LABS Laboratory Tests Test 04/07/18 06:53 04/07/18 06:55 White Blood Count 5.2 x10^3/uL (4.0-11.0) Red Blood Count 3.22 x10^6/uL (3.50-5.40) Hemoglobin 11.6 g/dL (12.0-15.5) Hematocrit 31.9 % (36.0-47.0) Mean Corpuscular Volume 99 fL (79-100) Mean Corpuscular Hemoglobin 36 pg (25-35) Mean Corpuscular Hemoglobin Concent 36 g/dL (31-37) Red Cell Distribution Width 13.2 % (11.5-14.5) Platelet Count 164 x10^3/uL (140-400) Neutrophils (%) (Auto) 55 % (31-73) Lymphocytes (%) (Auto) 39 % (24-48) Monocytes (%) (Auto) 6 % (0-9) Eosinophils (%) (Auto) 1 % (0-3) Basophils (%) (Auto) 0 % (0-3) Neutrophils # (Auto) 2.9 x10^3uL (1.8-7.7) Lymphocytes # (Auto) 2.0 x10^3/uL (1.0-4.8) Monocytes # (Auto) 0.3 x10^3/uL (0.0-1.1) Eosinophils # (Auto) 0.0 x10^3/uL (0.0-0.7) Basophils # (Auto) 0.0 x10^3/uL (0.0-0.2) Sodium Level 137 mmol/L (136-145) Potassium Level 3.7 mmol/L (3.5-5.1) Chloride Level 95 mmol/L (98-107) Carbon Dioxide Level 30 mmol/L (21-32) Anion Gap 12 (6-14) Blood Urea Nitrogen 29 mg/dL (7-20) Creatinine 1.2 mg/dL (0.6-1.0) Estimated GFR (Cockcroft-Gault) 56.6 Glucose Level 116 mg/dL (70-99) Calcium Level 8.2 mg/dL (8.5-10.1) Assessment and Plan Assessmemt and Plan Problems Medical Problems: (1) Alcohol withdrawal Status: Acute Comment Review of Relevant I have reviewed the following items ranjit (where applicable) has been applied. Labs Laboratory Tests Test 04/06/18 10:50 04/06/18 16:40 04/06/18 17:30 04/06/18 19:30 White Blood Count 8.7 x10^3/uL (4.0-11.0) Red Blood Count 3.47 x10^6/uL (3.50-5.40) Hemoglobin 12.2 g/dL (12.0-15.5) Hematocrit 35.9 % (36.0-47.0) Mean Corpuscular Volume 103 fL (79-100) Mean Corpuscular Hemoglobin 35 pg (25-35) Mean Corpuscular Hemoglobin Concent 34 g/dL (31-37) Red Cell Distribution Width 13.4 % (11.5-14.5) Platelet Count 240 x10^3/uL (140-400) Neutrophils (%) (Auto) 85 % (31-73) Lymphocytes (%) (Auto) 8 % (24-48) Monocytes (%) (Auto) 6 % (0-9) Eosinophils (%) (Auto) 0 % (0-3) Basophils (%) (Auto) 1 % (0-3) Neutrophils # (Auto) 7.4 x10^3uL (1.8-7.7) Lymphocytes # (Auto) 0.7 x10^3/uL (1.0-4.8) Monocytes # (Auto) 0.5 x10^3/uL (0.0-1.1) Eosinophils # (Auto) 0.0 x10^3/uL (0.0-0.7) Basophils # (Auto) 0.0 x10^3/uL (0.0-0.2) Segmented Neutrophils % 73 % (35-66) Band Neutrophils % 15 % (0-9) Lymphocytes % 7 % (24-48) Monocytes % 5 % (0-10) Platelet Estimate Adequate (ADEQUATE) Sodium Level 135 mmol/L (136-145) Potassium Level 5.1 mmol/L (3.5-5.1) Chloride Level 90 mmol/L (98-107) Carbon Dioxide Level 8 mmol/L (21-32) Anion Gap 37 (6-14) Blood Urea Nitrogen 50 mg/dL (7-20) Creatinine 2.1 mg/dL (0.6-1.0) Estimated GFR (Cockcroft-Gault) 29.7 Glucose Level 118 mg/dL (70-99) Calcium Level 9.1 mg/dL (8.5-10.1) Magnesium Level 1.7 mg/dL (1.8-2.4) Total Bilirubin 0.6 mg/dL (0.2-1.0) Direct Bilirubin 0.1 mg/dL (0.0-0.2) Aspartate Amino Transf (AST/SGOT) 50 U/L (15-37) Alanine Aminotransferase (ALT/SGPT) 26 U/L (14-59) Alkaline Phosphatase 118 U/L (46-116) Total Protein 8.8 g/dL (6.4-8.2) Albumin 4.5 g/dL (3.4-5.0) Lipase 50 U/L (73-393) Ethyl Alcohol Level < 10 mg/dL (0-10) O2 Saturation 97 % (92-99) Arterial Blood pH 7.39 (7.35-7.45) Arterial Blood pCO2 at Patient Temp 19 mmHg (35-46) Arterial Blood pO2 at Patient Temp 104 mmHg (75-108) Arterial Blood HCO3 11 mmol/L (21-28) Arterial Blood Base Excess -11 mmol/L (-3-3) FiO2 21 Special Test - Miscellaneous See separate report Lactic Acid Level 1.0 mmol/L (0.4-2.0) Creatine Kinase 158 U/L (26-192) Urine Collection Type Unknown Urine Color Yellow Urine Clarity Clear Urine pH 5.5 Urine Specific [place] 1.020 Urine Protein Negative mg/dL (NEG-TRACE) Urine Glucose (UA) Negative mg/dL (NEG) Urine Ketones (Stick) >=80 mg/dL (NEG) Urine Blood Negative (NEG) Urine Nitrite Negative (NEG) Urine Bilirubin Moderate (NEG) Urine Urobilinogen Dipstick 0.2 mg/dL (0.2 mg/dL) Urine Leukocyte Esterase Negative (NEG) Urine RBC 0 /HPF (0-2) Urine WBC 0 /HPF (0-4) Urine Squamous Epithelial Cells Mod /LPF Urine Bacteria Few /HPF (0-FEW) Test 04/07/18 06:53 04/07/18 06:55 White Blood Count 5.2 x10^3/uL (4.0-11.0) Red Blood Count 3.22 x10^6/uL (3.50-5.40) Hemoglobin 11.6 g/dL (12.0-15.5) Hematocrit 31.9 % (36.0-47.0) Mean Corpuscular Volume 99 fL (79-100) Mean Corpuscular Hemoglobin 36 pg (25-35) Mean Corpuscular Hemoglobin Concent 36 g/dL (31-37) Red Cell Distribution Width 13.2 % (11.5-14.5) Platelet Count 164 x10^3/uL (140-400) Neutrophils (%) (Auto) 55 % (31-73) Lymphocytes (%) (Auto) 39 % (24-48) Monocytes (%) (Auto) 6 % (0-9) Eosinophils (%) (Auto) 1 % (0-3) Basophils (%) (Auto) 0 % (0-3) Neutrophils # (Auto) 2.9 x10^3uL (1.8-7.7) Lymphocytes # (Auto) 2.0 x10^3/uL (1.0-4.8) Monocytes # (Auto) 0.3 x10^3/uL (0.0-1.1) Eosinophils # (Auto) 0.0 x10^3/uL (0.0-0.7) Basophils # (Auto) 0.0 x10^3/uL (0.0-0.2) Sodium Level 137 mmol/L (136-145) Potassium Level 3.7 mmol/L (3.5-5.1) Chloride Level 95 mmol/L (98-107) Carbon Dioxide Level 30 mmol/L (21-32) Anion Gap 12 (6-14) Blood Urea Nitrogen 29 mg/dL (7-20) Creatinine 1.2 mg/dL (0.6-1.0) Estimated GFR (Cockcroft-Gault) 56.6 Glucose Level 116 mg/dL (70-99) Calcium Level 8.2 mg/dL (8.5-10.1) Laboratory Tests Test 04/07/18 06:53 04/07/18 06:55 White Blood Count 5.2 x10^3/uL (4.0-11.0) Red Blood Count 3.22 x10^6/uL (3.50-5.40) Hemoglobin 11.6 g/dL (12.0-15.5) Hematocrit 31.9 % (36.0-47.0) Mean Corpuscular Volume 99 fL (79-100) Mean Corpuscular Hemoglobin 36 pg (25-35) Mean Corpuscular Hemoglobin Concent 36 g/dL (31-37) Red Cell Distribution Width 13.2 % (11.5-14.5) Platelet Count 164 x10^3/uL (140-400) Neutrophils (%) (Auto) 55 % (31-73) Lymphocytes (%) (Auto) 39 % (24-48) Monocytes (%) (Auto) 6 % (0-9) Eosinophils (%) (Auto) 1 % (0-3) Basophils (%) (Auto) 0 % (0-3) Neutrophils # (Auto) 2.9 x10^3uL (1.8-7.7) Lymphocytes # (Auto) 2.0 x10^3/uL (1.0-4.8) Monocytes # (Auto) 0.3 x10^3/uL (0.0-1.1) Eosinophils # (Auto) 0.0 x10^3/uL (0.0-0.7) Basophils # (Auto) 0.0 x10^3/uL (0.0-0.2) Sodium Level 137 mmol/L (136-145) Potassium Level 3.7 mmol/L (3.5-5.1) Chloride Level 95 mmol/L (98-107) Carbon Dioxide Level 30 mmol/L (21-32) Anion Gap 12 (6-14) Blood Urea Nitrogen 29 mg/dL (7-20) Creatinine 1.2 mg/dL (0.6-1.0) Estimated GFR (Cockcroft-Gault) 56.6 Glucose Level 116 mg/dL (70-99) Calcium Level 8.2 mg/dL (8.5-10.1) Medications Current Medications Lorazepam (Ativan) 0.5 mg 1X ONCE IV Last administered on 04/06/18at 11:06; Start 04/06/18 at 10:00; Stop 04/06/18 at 10:01; Status DC Ondansetron HCl (Zofran) 4 mg 1X ONCE IV Last administered on 04/06/18at 11:05 ; Start 04/06/18 at 10:00; Stop 04/06/18 at 10:01; Status DC Sodium Chloride 1,000 ml @ 1,000 mls/hr 1X ONCE IV Last administered on at 11:06; Start 04/06/18 at 10:00; Stop 04/06/18 at 10:59; Status DC Lorazepam (Ativan) 1 mg 1X ONCE IV Last administered on 04/06/18at 12:00; Start 04/06/18 at 12:00; Stop 04/06/18 at 12:01; Status DC Multivitamins 10 ml/Thiamine HCl 100 mg/Folic Acid 1 mg/Sodium Chloride 1,011.2 ml @ 1,000.088 mls/hr 1X ONCE IV Last administered on 04/06/18at 14:11; Start 04/06/18 at 14:00; Stop 04/06/18 at 15:00; Status DC Ondansetron HCl (Zofran) 4 mg PRN Q8HRS PRN IV NAUSEA/VOMITING; Start 04/06/18 at 14:30; Stop 04/07/18 at 14:29; Status DC Acetaminophen (Tylenol) 650 mg PRN Q4HRS PRN PO FEVER; Start 04/06/18 at 14:30 ; Stop 04/07/18 at 14:29; Status DC Atorvastatin Calcium (Lipitor) 20 mg QHS PO Last administered on 04/07/18at 20: 20; Start 04/06/18 at 21:00 Acetaminophen/ Hydrocodone Bitart (Lortab 5/325) 1 tab PRN Q4HRS PRN PO MODERATE PAIN; Start 04/06/18 at 14:45 Famotidine (Pepcid) 20 mg QHS PO Last administered on 04/07/18at 20:19; Start at 21:00 Acetaminophen (Tylenol) 650 mg PRN Q6HRS PRN PO FEVER; Start 04/06/18 at 14:45 Ondansetron HCl (Zofran) 4 mg PRN Q6HRS PRN IV NAUSEA/VOMITING; Start 04/06/18 at 14:45 Morphine Sulfate (Morphine Sulfate) 2 mg PRN Q2HR PRN IV SEVERE PAIN; Start at 14:45 Tramadol HCl (Ultram) 50 mg PRN Q6HRS PRN PO MILD TO MODERATE PAIN; Start 04/06 at 14:45 Hydralazine HCl (Apresoline Inj) 10 mg PRN Q4HRS PRN IVP ELEVATED BP, SEE COMMENTS; Start 04/06/18 at 14:45 Docusate Sodium (Colace) 100 mg PRN DAILY PRN PO CONSTIPATION; Start 04/06/18 at 14:45 Lorazepam (Ativan) 1 mg PRN Q6HRS PRN PO ANXIETY / AGITATION; Start 04/06/18 at 14:45 Lorazepam (Ativan) 2 mg PRN Q4HRS PRN IV ANXIETY / AGITATION; Start 04/06/18 at 14:45 Sodium Chloride 1,000 ml @ 125 mls/hr Q8H IV Last administered on 04/06/18at 15 :32; Start 04/06/18 at 14:45; Stop 04/06/18 at 16:39; Status DC Magnesium Sulfate 50 ml @ 25 mls/hr 1X ONCE IV Last administered on 04/06/18at 15:32; Start 04/06/18 at 15:00; Stop 04/06/18 at 16:59; Status DC Heparin Sodium (Porcine) (Heparin Sodium) 5,000 unit Q8HRS SQ Last administered on 04/07/18at 20:23; Start 04/06/18 at 22:00 Multivitamins 10 ml/Thiamine HCl 100 mg/Folic Acid 1 mg/Sodium Chloride 1,011.2 ml @ 100 mls/ hr DAILY IV ; Start 04/07/18 at 09:00; Stop 04/11/18 at 19:07; Status UNV Multivitamins (Thera M Plus) 1 tab DAILY PO Last administered on 04/07/18at 08: 14; Start 04/07/18 at 09:00; Stop 04/07/18 at 13:44; Status DC Folic Acid (Folic Acid) 1 mg DAILY PO Last administered on 04/07/18at 08:15; Start 04/07/18 at 09:00; Stop 04/07/18 at 13:44; Status DC Thiamine HCl 100 mg/Dextrose 51 ml @ 100 mls/hr DAILY IV ; Start 04/07/18 at 09 :00; Stop 04/11/18 at 09:31; Status UNV Lorazepam (Ativan) 2 mg Q6H PO Last administered on 04/07/18at 20:19; Start at 15:00; Stop 04/07/18 at 21:01; Status DC Enoxaparin Sodium (Lovenox 40mg Syringe) 40 mg DAILY SQ ; Start 04/07/18 at 09: 00; Status UNV Pantoprazole Sodium (PROTONIX VIAL for IV PUSH) 40 mg DAILY08 IVP Last administered on 04/07/18at 08:14; Start 04/06/18 at 15:30; Stop 04/07/18 at 15:09 ; Status DC Multivitamins 10 ml/Thiamine HCl 100 mg/Folic Acid 1 mg/Sodium Chloride 1,011.2 ml @ 1,000.088 mls/hr 1X ONCE IV ; Start 04/06/18 at 15:00; Stop 04/06/18 at 16:00; Status UNV Thiamine Mononitrate (Vitamin B-1) 100 mg DAILY PO Last administered on at 08:14; Start 04/07/18 at 09:00; Stop 04/07/18 at 13:44; Status DC Sodium Bicarbonate 150 meq/Sterile Water 1,150 ml @ 125 mls/hr Q9H12M IV Last administered on 04/07/18at 03:43; Start 04/06/18 at 17:00; Stop 04/07/18 at 13:35 ; Status DC Multivitamins 10 ml/Thiamine HCl 100 mg/Folic Acid 1 mg/Sodium Chloride 1,011.2 ml @ 100 mls/ hr DAILY IV Last administered on 04/07/18at 15:43; Start at 14:00 Pantoprazole Sodium (Protonix) 40 mg DAILYAC PO ; Start 04/08/18 at 07:30 Active Scripts Active Hydrocodone-Apap 5-325 (Hydrocodone Bit/Acetaminophen) 1 Each Tablet 1 Tab PO PRN Q4HRS PRN Atorvastatin Calcium 20 Mg Tablet 20 Mg PO QHS Triamterene-Hctz 37.5-25 Mg Cp (Triamterene/Hydrochlorothiazid) 1 Each Capsule 1 Cap PO DAILY Ranitidine Hcl 300 Mg Capsule 1 Cap PO BID Lisinopril 20 Mg Tablet 1 Tab PO DAILY Vitals/I & O Vital Sign - Last 24 Hours 04/06/18 04/07/18 04/07/18 04/07/18 23:15 03:20 07:00 08:21 Temp 98.9 98.7 98.4 98.9 98.7 98.4 Pulse 76 80 85 Resp 18 18 16 B/P (MAP) 120/75 (90) 117/75 (89) 137/73 (94) Pulse Ox 98 100 97 O2 Delivery Room Air Room Air Room Air Room Air 04/07/18 04/07/18 04/07/18 11:00 15:00 19:20 Temp 98.2 98.2 98.1 98.2 98.2 98.1 Pulse 78 83 79 Resp 16 16 20 B/P (MAP) 132/83 (99) 139/58 (85) 135/79 (97) Pulse Ox 98 98 98 O2 Delivery Room Air Room Air Room Air Intake and Output 04/06/18 04/06/18 04/07/18 15:01 23:01 07:01 Intake Total 1000 ml 450 ml 200 ml Output Total 300 ml Balance 1000 ml 150 ml 200 ml ENMANUEL BEAR MD Apr 07, 2018 22:00
[2018-04-07 23:54] VITALS: BP 127/94
[2018-04-08 03:28] VITALS: BP 118/87
[2018-04-08] MEDS: HEPARIN for SUB-Q USE 5,000 UNIT/ML VIAL. SQ SCH ×2 (06:08→14:00)
[2018-04-08 07:00] VITALS: BP 148/96
[2018-04-08] MEDS ORDERED: PANTOPRAZOLE 40 MG TABLET.DR. PO SCH (07:30)
[2018-04-08] MEDS: MULTIVIT INFUSN,ADULT 4,VIT K 10 ML, THIAMINE INJ 100 MG, FOLIC ACID INJ 1 MG in IV NOR... IV SCH (08:40)
[2018-04-08 11:00] VITALS: BP 167/88
--- NOTE | 2018-04-08 13:25 | PDOC3 ---
Discharge Summary IPC Final Diagnosis Problems Medical Problems: (1) Alcohol withdrawal Status: Acute Brief Hospital Course Ms. Mccabe is a 52 old F who presented with: 1. Alcohol toxicity: CIWA protocol. Hx DTs in past 2. Epigastric pain: prob alcohol induced gastritis. PPI, GI consult 3. stress and anxiety, work related 4. THC abuse 5. hx htn 6. GERD 7. ACUTE renal failure, pre-renal, dehydration, CR WAS 0.6 02/04 Pt was seen by renal. Doing well today and ok for dc. No longer withdrawing at this time and will join an ETOH support group. Cr pending at this time Xanax for anxiety upon dc CONDITION AT DISCHARGE: Improved Scheduled Atorvastatin Calcium (Atorvastatin Calcium), 20 MG PO QHS Lisinopril (Lisinopril), 1 TAB PO DAILY Ranitidine Hcl (Ranitidine Hcl), 1 CAP PO BID Triamterene/Hydrochlorothiazid (Triamterene-Hctz 37.5-25 Mg Cp), 1 CAP PO DAILY Scheduled PRN Hydrocodone Bit/Acetaminophen (Hydrocodone-Apap 5-325 ), 1 TAB PO PRN Q4HRS PRN for PAIN ENMANUEL BEAR MD Apr 08, 2018 13:25
[2018-04-08] MEDS ORDERED: ALPR0.5T6 PO (13:31)
[2018-04-08] MEDS ORDERED: RANI300C PO (13:31)
[2018-04-08] MEDS ORDERED: TRIA1CAP3 PO (13:31)
[2018-04-08] MEDS ORDERED: ATOR20TA58 PO (13:31)
[2018-04-08] MEDS ORDERED: LISI-334 PO (13:31)
[2018-04-08 14:58] LABS: CALCIUM 8.2 mg/dL (8.5-10.1); CREATININE 0.9 mg/dL (0.6-1.0); POTASSIUM 4.2 mmol/L (3.5-5.1)
[2018-04-08 15:04] LABS: ALBUMIN 3.6 g/dL (3.4-5.0); ALBUMIN/GLOBULIN RATIO 0.9 (1.0-1.7); TOTAL BILIRUBIN 0.5 mg/dL (0.2-1.0); TOTAL PROTEIN 7.6 g/dL (6.4-8.2)
--- NOTE | 2018-04-08 15:19 | NUR ---
Discharge Note: LACEY MAC [facility] Discharge instructions and discharge home medications reviewed with Patient and a copy given. All questions have been answered and understanding verbalized. The following instructions and handouts were given: Worsening symptoms, activity, medications, and follow up. Discontinued lines and drains: IV discontinued, and skin intact. Patient discharged to home with via private vehicle.
== END 2018-04-08 15:28 | disposition home or self-care (01) | DRG 683 ==
LOC: ER 09:35 → 6 SOUTH 13:20
PROVIDERS: ADMIT Internal Medicine; ATTEND Internal Medicine
DX: N17.9 Acute kidney failure, unspecified (principal); F10.239 Alcohol dependence with withdrawal, unspecified; E87.2 Acidosis; K21.9 Gastro-esophageal reflux disease without esophagitis; I10 Essential (primary) hypertension; F17.210 Nicotine dependence, cigarettes, uncomplicated; F12.10 Cannabis abuse, uncomplicated; E86.0 Dehydration; K29.20 Alcoholic gastritis without bleeding; F41.9 Anxiety disorder, unspecified; T51.91XA Toxic effect of unspecified alcohol, accidental (unintentional), initial encounter; Y92.89 Other specified places as the place of occurrence of the external cause; Z98.51 Tubal ligation status
CPT/HCPCS: 36415; 36600; 71100; 76770; 80048; 80053; 80076; 81001; 82550; 82805; 83605; 83690; 83735; 84300; 85007; 85025; 96361; 96365; 96367; 96375; 96376; C9113; G0480; J1644; J2060; J2405; J3475; J7030; 99285-25; G0378

== ENCOUNTER 2018-07-24 20:28 | Emergency (ER) | payer SELFPAY ==
[~2018-07-24] VITALS: Ht 160 cm; Wt 48.5 kg
[~2018-07-24 20:28] MED LIST changes: +ALPR0.5T6 PO
--- NOTE | 2018-07-24 20:59 | PHYS DOC ---
Past Medical History Past Medical History: Alcoholism, GERD, Hypertension, Pancreatitis (ERNST NERI APRN) Past Surgical History: Tubal ligation (ERNST NERI APRN) Alcohol Use: Heavy Drug Use: Marijuana (ERNST NERI APRN) Adult General Chief Complaint Chief Complaint: WITHDRAWL HPI HPI Patient is a 52 year old [female who presents with alcohol withdrawal symptoms. Reports she feels like she needs to cut back her ETOH use. States she drinks 1/2 pint daily, reports her last drink was yesterday morning, reports she has not taken her blood pressure medications or other medications for the past 2 days. Reports she has not eaten for 2 days. States she feels good right now. Denies nausea vomiting. Denies feeling anxious. Spouse reports patient drinks at least 1-1.25 pints of gin daily and reports patient has been through this in the past patient initially reports she has never gone through withdrawal or alcohol detox in the past, however spouse reports she has. (ERNST NERI APRN) Review of Systems Review of Systems Constitutional: Denies fever or chills [] Eyes: Denies change in visual acuity, redness, or eye pain [] HENT: Denies nasal congestion or sore throat [] Respiratory: Denies cough or shortness of breath [] Cardiovascular: No additional information not addressed in HPI [] GI: Denies abdominal pain, nausea, vomiting, bloody stools or diarrhea [] : Denies dysuria or hematuria [] Musculoskeletal: Denies back pain or joint pain [] Integument: Denies rash or skin lesions [] Neurologic: Denies headache, focal weakness or sensory changes [] Endocrine: Denies polyuria or polydipsia [] All other systems were reviewed and found to be within normal limits, except as documented in this note. (ERNST NERI APRN) Current Medications Current Medications Current Medications Medications (Trade) Dose Ordered Sig/Dyllan Start Time Stop Time Status Last Admin Dose Admin Multivitamins 10 ml/Thiamine HCl 100 mg/Folic Acid 1 mg/Sodium Chloride 1,011.2 ml @ 1,000.088 mls/hr 1X ONCE 07/24/18 21:00 07/24/18 22:00 DC 07/24/18 21:12 1,000.088 MLS/HR Sodium Chloride (Normal Saline Flush) 10 ml QSHIFT PRN 07/24/18 21:00 07/24/18 23:35 DC (CARLO AMOS DO) Allergies Allergies Allergies Coded Allergies Type Severity Reaction Last Updated Verified No Known Drug Allergies 03/27/15 No (CARLO AMOS DO) Physical Exam Physical Exam Constitutional: Underweight, mildly frail, no acute distress, non-toxic appearance. [] HENT: Normocephalic, atraumatic, bilateral external ears normal, oropharynx moist, no oral exudates, nose normal. [] Eyes: PERRLA, EOMI, conjunctiva normal, no discharge. [] Neck: Normal range of motion, no tenderness, supple, no stridor. [] Cardiovascular:Heart rate regular rhythm, no murmur [] Lungs & Thorax: Bilateral breath sounds clear to auscultation [] Abdomen: Bowel sounds normal, soft, no tenderness, no masses, no pulsatile masses. [] Skin: Warm, dry, no erythema, no rash. [] Back: No tenderness, no CVA tenderness. [] Extremities: No tenderness, no cyanosis, no clubbing, ROM intact, no edema. [] Neurologic: Alert and oriented X 3, normal motor function, normal sensory function, no focal deficits noted. [] Psychologic: Affect normal, judgement normal, mood normal. [] (ERNST NERI APRN) Current Patient Data Vital Signs Vital Signs Date Time Temp Pulse Resp B/P (MAP) Pulse Ox O2 Delivery O2 Flow Rate FiO2 07/24/18 23:08 89 18 149/96 (113) 98 Room Air 07/24/18 20:33 98.6 98.6 (CARLO AMOS DO) Lab Values Laboratory Tests Test 07/24/18 20:59 07/24/18 21:05 White Blood Count 3.8 x10^3/uL (4.0-11.0) L Red Blood Count 3.17 x10^6/uL (3.50-5.40) L Hemoglobin 10.4 g/dL (12.0-15.5) L Hematocrit 31.3 % (36.0-47.0) L Mean Corpuscular Volume 99 fL (79-100) Mean Corpuscular Hemoglobin 33 pg (25-35) Mean Corpuscular Hemoglobin Concent 33 g/dL (31-37) Red Cell Distribution Width 15.7 % (11.5-14.5) H Platelet Count 118 x10^3/uL (140-400) L Neutrophils (%) (Auto) 40 % (31-73) Lymphocytes (%) (Auto) 54 % (24-48) H Monocytes (%) (Auto) 4 % (0-9) Eosinophils (%) (Auto) 1 % (0-3) Basophils (%) (Auto) 1 % (0-3) Neutrophils # (Auto) 1.5 x10^3uL (1.8-7.7) L Lymphocytes # (Auto) 2.0 x10^3/uL (1.0-4.8) Monocytes # (Auto) 0.1 x10^3/uL (0.0-1.1) Eosinophils # (Auto) 0.0 x10^3/uL (0.0-0.7) Basophils # (Auto) 0.0 x10^3/uL (0.0-0.2) Sodium Level 133 mmol/L (136-145) L Potassium Level 3.4 mmol/L (3.5-5.1) L Chloride Level 92 mmol/L (98-107) L Carbon Dioxide Level 22 mmol/L (21-32) Anion Gap 19 (6-14) H Blood Urea Nitrogen 6 mg/dL (7-20) L Creatinine 0.8 mg/dL (0.6-1.0) Estimated GFR (Cockcroft-Gault) 90.4 BUN/Creatinine Ratio 8 (6-20) Glucose Level 86 mg/dL (70-99) Calcium Level 8.8 mg/dL (8.5-10.1) Total Bilirubin 0.6 mg/dL (0.2-1.0) Aspartate Amino Transferase (AST) 137 U/L (15-37) H Alanine Aminotransferase (ALT) 38 U/L (14-59) Alkaline Phosphatase 103 U/L (46-116) Total Protein 8.1 g/dL (6.4-8.2) Albumin 4.4 g/dL (3.4-5.0) Albumin/Globulin Ratio 1.2 (1.0-1.7) Acetaminophen Level 15.24 mcg/ml (10-30) Acetaminophen Last Dose Date Unk Acetaminophen Last Dose Time Unk Ethyl Alcohol Level 278 mg/dL (0-10) H Urine Collection Type Unknown Urine Color Yellow Urine Clarity Clear Urine pH 5.5 Urine Specific [place] 1.010 Urine Protein Negative mg/dL (NEG-TRACE) Urine Glucose (UA) Negative mg/dL (NEG) Urine Ketones (Stick) 15 mg/dL (NEG) Urine Blood Negative (NEG) Urine Nitrite Negative (NEG) Urine Bilirubin Negative (NEG) Urine Urobilinogen Dipstick 0.2 mg/dL (0.2 mg/dL) Urine Leukocyte Esterase Negative (NEG) Urine RBC 0 /HPF (0-2) Urine WBC Occ /HPF (0-4) Urine Squamous Epithelial Cells Few /LPF Urine Bacteria 0 /HPF (0-FEW) Urine Hyaline Casts Moderate /HPF Urine Mucus Slight /LPF Urine Opiates Screen Neg (NEG) Urine Methadone Screen Neg (NEG) Urine Barbiturates Neg (NEG) Urine Phencyclidine Screen Neg (NEG) Urine Amphetamine/Methamphetamine Neg (NEG) Urine Benzodiazepines Screen Neg (NEG) Urine Cocaine Screen Neg (NEG) Urine Cannabinoids Screen Pos (NEG) Urine Ethyl Alcohol Pos (NEG) Laboratory Tests 07/24/18 20:59 Laboratory Tests 07/24/18 20:59 (CARLO AMOS DO) Lab Values Laboratory Tests Test 07/24/18 20:59 07/24/18 21:05 White Blood Count 3.8 x10^3/uL (4.0-11.0) L Red Blood Count 3.17 x10^6/uL (3.50-5.40) L Hemoglobin 10.4 g/dL (12.0-15.5) L Hematocrit 31.3 % (36.0-47.0) L Mean Corpuscular Volume 99 fL (79-100) Mean Corpuscular Hemoglobin 33 pg (25-35) Mean Corpuscular Hemoglobin Concent 33 g/dL (31-37) Red Cell Distribution Width 15.7 % (11.5-14.5) H Platelet Count 118 x10^3/uL (140-400) L Neutrophils (%) (Auto) 40 % (31-73) Lymphocytes (%) (Auto) 54 % (24-48) H Monocytes (%) (Auto) 4 % (0-9) Eosinophils (%) (Auto) 1 % (0-3) Basophils (%) (Auto) 1 % (0-3) Neutrophils # (Auto) 1.5 x10^3uL (1.8-7.7) L Lymphocytes # (Auto) 2.0 x10^3/uL (1.0-4.8) Monocytes # (Auto) 0.1 x10^3/uL (0.0-1.1) Eosinophils # (Auto) 0.0 x10^3/uL (0.0-0.7) Basophils # (Auto) 0.0 x10^3/uL (0.0-0.2) Sodium Level 133 mmol/L (136-145) L Potassium Level 3.4 mmol/L (3.5-5.1) L Chloride Level 92 mmol/L (98-107) L Carbon Dioxide Level 22 mmol/L (21-32) Anion Gap 19 (6-14) H Blood Urea Nitrogen 6 mg/dL (7-20) L Creatinine 0.8 mg/dL (0.6-1.0) Estimated GFR (Cockcroft-Gault) 90.4 BUN/Creatinine Ratio 8 (6-20) Glucose Level 86 mg/dL (70-99) Calcium Level 8.8 mg/dL (8.5-10.1) Total Bilirubin 0.6 mg/dL (0.2-1.0) Aspartate Amino Transferase (AST) 137 U/L (15-37) H Alanine Aminotransferase (ALT) 38 U/L (14-59) Alkaline Phosphatase 103 U/L (46-116) Total Protein 8.1 g/dL (6.4-8.2) Albumin 4.4 g/dL (3.4-5.0) Albumin/Globulin Ratio 1.2 (1.0-1.7) Acetaminophen Level 15.24 mcg/ml (10-30) Acetaminophen Last Dose Date Unk Acetaminophen Last Dose Time Unk Ethyl Alcohol Level 278 mg/dL (0-10) H Urine Collection Type Unknown Urine Color Yellow Urine Clarity Clear Urine pH 5.5 Urine Specific [place] 1.010 Urine Protein Negative mg/dL (NEG-TRACE) Urine Glucose (UA) Negative mg/dL (NEG) Urine Ketones (Stick) 15 mg/dL (NEG) Urine Blood Negative (NEG) Urine Nitrite Negative (NEG) Urine Bilirubin Negative (NEG) Urine Urobilinogen Dipstick 0.2 mg/dL (0.2 mg/dL) Urine Leukocyte Esterase Negative (NEG) Urine RBC 0 /HPF (0-2) Urine WBC Occ /HPF (0-4) Urine Squamous Epithelial Cells Few /LPF Urine Bacteria 0 /HPF (0-FEW) Urine Hyaline Casts Moderate /HPF Urine Mucus Slight /LPF Urine Opiates Screen Neg (NEG) Urine Methadone Screen Neg (NEG) Urine Barbiturates Neg (NEG) Urine Phencyclidine Screen Neg (NEG) Urine Amphetamine/Methamphetamine Neg (NEG) Urine Benzodiazepines Screen Neg (NEG) Urine Cocaine Screen Neg (NEG) Urine Cannabinoids Screen Pos (NEG) Urine Ethyl Alcohol Pos (NEG) Laboratory Tests 07/24/18 20:59 Laboratory Tests 07/24/18 20:59 (ERNST NERI APRN) EKG EKG @ 2058. Normal sinus rhythm, no STEMI, prolonged QT, Interpreted by Dr Amos. [] (ERNST NERI APRN) Radiology/Procedures Radiology/Procedures [] (ERNST NERI APRN) Course & Med Decision Making Course & Med Decision Making Pertinent Labs and Imaging studies reviewed. (See chart for details) 2129 Discussed findings with patient and spouse, with elevated ETOH level inconsistent with no ETOH since day prior, patient later agrees she did have some this morning. Discussed PAT coming to evaluate patient tonight to determine if there are any options for admission to detox center tonight. Patient and family in agreement with discussion with PAT. Noted BP improved to 137/80's 2258: PAT reports patient has been accepted to [facility] for their acute intoxication tonight and will follow up there with detox program. Patient and family in agreement, Spouse will take patient to facility. [] (ERNST NERI APRN) Dragon Disclaimer Dragon Disclaimer This electronic medical record was generated, in whole or in part, using a voice recognition dictation system. (ERNST NERI APRN) Departure Departure Impression: Primary Impression: Alcohol intoxication Additional Impression: Alcohol abuse Disposition: 01 HOME, SELF-CARE Condition: GOOD Referrals: NO PCP (PCP) Patient Instructions: Alcohol Intoxication, [id number], Alcohol Withdrawal, [id number] Additional Instructions: As you discussed tonight with our behavioral health staff, go to [facility]. They have accepted you there and will help get you resources to work through your alcohol withdrawal. Attending Signature Attending Signature I have reviewed the PA/PARTS ROOM ASSOCIATE's note and plan of care. I was available for consultation as needed during the patient's visit in the emergency department. I agree with the clinical impression, plan, and disposition. (CARLO AMOS DO) Problem Qualifiers ERNST NERI APRN July 24, 2018 20:59 CARLO AMOS DO August 06, 2018 02:17
[2018-07-24] MEDS ORDERED: 0.9 % SODIUM CHLORIDE 10 ML DISP.SYRIN. IV PRN (21:00)
[2018-07-24] MEDS ORDERED: MULTIVIT INFUSN,ADULT 4,VIT K 10 ML, THIAMINE INJ 100 MG, FOLIC ACID INJ 1 MG in IV NOR... IV ONE (21:00)
[2018-07-24 21:15] LABS: BASO % 1 % (0-3); EOS % 1 % (0-3); HEMATOCRIT 31.3 % (36.0-47.0); HEMOGLOBIN 10.4 g/dL (12.0-15.5); LYMPH % 54 % (24-48); MEAN CORPUSCULAR HEMOGLOBIN 33 pg (25-35); MEAN CORPUSCULAR HGB CONC 33 g/dL (31-37); MEAN CORPUSCULAR VOLUME 99 fL (79-100); MONO # 0.1 x10^3/uL (0.0-1.1); MONO % 4 % (0-9); NEUT # 1.5 x10^3uL (1.8-7.7); NEUT % 40 % (31-73); PLATELET COUNT 118 x10^3/uL (140-400); RED BLOOD COUNT 3.17 x10^6/uL (3.50-5.40); RED CELL DISTRIBUTION WIDTH 15.7 % (11.5-14.5); WHITE BLOOD COUNT 3.8 x10^3/uL (4.0-11.0)
[2018-07-24 21:19] LABS: CALCIUM 8.8 mg/dL (8.5-10.1); CREATININE 0.8 mg/dL (0.6-1.0); GFR 90.4; POTASSIUM 3.4 mmol/L (3.5-5.1)
[2018-07-24 21:20] LABS: BILIRUBIN,URINE NEGATIVE (NEG); CLARITY,URINE CLEAR; COLOR,URINE YELLOW; NITRITE,URINE NEGATIVE (NEG); PH,URINE 5.5; PROTEIN,URINE NEGATIVE (NEG-TRACE); UROBILINOGEN,URINE 0.2 mg/dL (0.2 mg/dL)
[2018-07-24 21:25] LABS: ACETAMIN 15.24 mcg/ml (10-30); ALBUMIN 4.4 g/dL (3.4-5.0); ALBUMIN/GLOBULIN RATIO 1.2 (1.0-1.7); ETHANOL 278 mg/dL (0-10); TOTAL BILIRUBIN 0.6 mg/dL (0.2-1.0); TOTAL PROTEIN 8.1 g/dL (6.4-8.2)
[2018-07-24 21:26] LABS: AMPHETAMINE/METHAMPHETAMINE NEG (NEG); BARBITURATES NEG (NEG); BENZODIAZEPINES NEG (NEG); CANNABINOIDS POS (NEG); COCAINE NEG (NEG); METHADONE NEG (NEG); OPIATES NEG (NEG); PHENCYCLIDINE NEG (NEG)
[2018-07-24 21:30] LABS: BACTERIA,URINE 0 /HPF (0-FEW); HYALINE CASTS, URINE MODERATE /HPF; RBC,URINE 0 /HPF (0-2); SQUAMOUS EPITHELIAL CELL,UR FEW /LPF; WBC,URINE OCC /HPF (0-4)
[2018-07-24 23:08] VITALS: BP 149/96
--- NOTE | 2018-07-25 07:00 | EKG ---
[facility] [address] [place] [address] Test Date: 2018-07-24 Test Time: 20:59:09 Pat Name: LACEY MAC Department: Room: Gender: F [employer]: : 1965 Requested By: ERNST NERI Order Number: [id number] Reading MD: Allan Huizar MD Measurements Intervals [place] Rate: 92 P: -18 NC: 132 QRS: 22 QRSD: 70 T: 74 QT: 384 QTc: 480 Interpretive Statements SINUS RHYTHM Electronically Signed On 08-20-2018 9:26:42 CDT by Allan Huizar MD
== END 2018-07-24 23:35 | disposition home or self-care (01) ==
LOC: ER 20:28
DX: F10.229 Alcohol dependence with intoxication, unspecified (principal); K21.9 Gastro-esophageal reflux disease without esophagitis; I10 Essential (primary) hypertension; Y90.8 Blood alcohol level of 240 mg/100 ml or more; R63.6 Underweight; Z68.1 Body mass index [BMI] 19.9 or less, adult; Z98.51 Tubal ligation status
CPT/HCPCS: 36415; 80053; 80307; 80329; 81001; 85025; 93005; 96365; 99285; G0480; J7030

== ENCOUNTER 2019-02-01 12:11 | Emergency (ER) | payer SELFPAY ==
[~2019-02-01] VITALS: Ht 160 cm; Wt 49.0 kg
[2019-02-01 12:26] VITALS: BP 181/100
[2019-02-01] MEDS ORDERED: LISI-334 PO (13:16)
[2019-02-01] MEDS ORDERED: TRIA1TAB3 PO (13:16)
--- NOTE | 2019-02-01 13:16 | PHYS DOC ---
Past Medical History Past Medical History: Alcoholism, GERD, Hypertension, Pancreatitis Past Surgical History: Tubal ligation Alcohol Use: Heavy Drug Use: Marijuana Adult General Chief Complaint Chief Complaint: HAND PROBLEM [facility] HPI Patient is a 53 year old right-handed female who presents with complaining of right hand injury. Patient states she felt dizzy yesterday while she was at work and for prevention of a fall used her right hand and landed on her hyperextended right hand without other injuries. Patient complaining of edema and pain of right hand that getting better with applied ice and taking [id number] ibuprofen. Patient states she needs release to work and does not want to have x-ray of her hand denies focal neuro deficit and deformity and other injuries. Patient states she ran out of her blood pressure medication for the last couple days and needs prescription of her medication also. Review of Systems Review of Systems Constitutional: Denies fever or chills [] Eyes: Denies change in visual acuity, redness, or eye pain [] HENT: Denies nasal congestion or sore throat [] Respiratory: Denies cough or shortness of breath [] Cardiovascular: No additional information not addressed in HPI [] GI: Denies abdominal pain, nausea, vomiting, bloody stools or diarrhea [] : Denies dysuria or hematuria [] Musculoskeletal: Denies back pain, reports joint pain [] Integument: Denies rash or skin lesions [] Neurologic: Denies headache, focal weakness or sensory changes [] Endocrine: Denies polyuria or polydipsia [] All other systems were reviewed and found to be within normal limits, except as documented in this note. Allergies Allergies Allergies Coded Allergies Type Severity Reaction Last Updated Verified No Known Drug Allergies 03/27/15 No Physical Exam Physical Exam Constitutional: Well developed, well nourished, no distress, non-toxic appearance. [] HENT: Normocephalic, atraumatic. Eyes: PERRLA, EOMI, conjunctiva normal, no discharge. [] Neck: Normal range of motion, no tenderness, supple, no stridor. [] Cardiovascular:Heart rate regular rhythm, no murmur [] Lungs & Thorax: Bilateral breath sounds clear to auscultation [] Extremities: Right hand with mild edema without erythema and deformity and tenderness, no cyanosis, no clubbing, ROM intact, no edema. [] Neurologic: Alert and oriented X 3, no focal deficits noted. [] Psychologic: Affect normal, judgement normal, mood normal. [] Current Patient Data Vital Signs Vital Signs Date Time Temp Pulse Resp B/P (MAP) Pulse Ox O2 Delivery O2 Flow Rate FiO2 02/01/19 12:26 98.2 95 16 181/100 (127) 97 Room Air 98.2 EKG EKG [] Radiology/Procedures Radiology/Procedures [] Course & Med Decision Making Course & Med Decision Making Evaluation of patient in ER showed 53-year-old female patient with injury to right hand. Patient was released to work and refill of blood pressure medication and refused x-ray of her hand. I've spoken with the patient and/or caregivers. I've explained the patient's condition, diagnosis and treatment plan based on information available to me at this time. I've answered the patient's and/or caregivers questions and addressed any concerns. The patient and/or caregivers have a good understanding the pat ient's diagnosis, condition and treatment plan as can be expected at this point. Vital signs have been stabilized. The patient's condition is stable for discharge from the emergency department. The patient will pursue further outpatient evaluation with her primary care provider or other designated consulting physician as outlined in the discharge instructions. Patient and/or caregivers are agreeable to this plan of care and follow-up instructions have been explained in detail. The patient and/or caregivers have received these instructions in written format and expressed understanding of these discharge instructions. The patient and her caregivers are aware that if any significant change in condition or worsening of symptoms should prompt him to immediately return to this of the closest emergency department. If an emergent department is not readily available I would encourage him to call 911. Edward Disclaimer Dragon Disclaimer This electronic medical record was generated, in whole or in part, using a voice recognition dictation system. Departure Departure Impression: Primary Impression: Contusion of right hand Additional Impression: Encounter for medication refill Disposition: 01 HOME, SELF-CARE Condition: STABLE Referrals: NO PCP (PCP) Patient Instructions: Hand Contusion, Medication Refill, Emergency Department Additional Instructions: Apply ice on right hand and take [id number] ibuprofen and Tylenol as needed for pain Follow-up with your primary care physician in 3-5 days Return to ER if not getting better Scripts Triamterene/Hydrochlorothiazid (TRIAMTERENE-HCTZ 37.5-25 MG TB) 1 Each Tablet 1 TAB PO DAILY, #30 TAB 0 Refills Prov: RAKESH TAN MD 02/01/19 Lisinopril (LISINOPRIL) 20 Mg Tablet 1 TAB PO DAILY, #30 TAB 0 Refills Prov: RAKESH TAN MD 02/01/19 Problem Qualifiers Primary Impression: Contusion of right hand Encounter type: initial encounter Qualified Codes: S60.221A - Contusion of right hand, initial encounter RAKESH TAN MD Feb 01, 2019 13:16
== END 2019-02-01 13:23 | disposition home or self-care (01) ==
LOC: ER 12:11
DX: S60.221A Contusion of right hand, initial encounter (principal); Z76.0 Encounter for issue of repeat prescription; I10 Essential (primary) hypertension; F10.20 Alcohol dependence, uncomplicated; F12.90 Cannabis use, unspecified, uncomplicated; Y90.9 Presence of alcohol in blood, level not specified; Z98.51 Tubal ligation status; W19.XXXA Unspecified fall, initial encounter; Y93.89 Activity, other specified; Y92.89 Other specified places as the place of occurrence of the external cause; Y99.8 Other external cause status
CPT/HCPCS: 99283

== ENCOUNTER 2019-05-30 11:18 | Emergency (ER) | payer SELFPAY ==
[~2019-05-30] VITALS: Ht 160 cm; Wt 50.0 kg
[~2019-05-30 11:18] MED LIST changes: +TRIA1TAB3 PO
[2019-05-30 13:58] LABS: BILIRUBIN,URINE LARGE (NEG); CLARITY,URINE CLEAR; COLOR,URINE AMBER; NITRITE,URINE NEGATIVE (NEG); PROTEIN,URINE 100 mg/dL (NEG-TRACE)
[2019-05-30 14:05] LABS: AMPHETAMINE/METHAMPHETAMINE NEG (NEG); BARBITURATES NEG (NEG); BENZODIAZEPINES NEG (NEG); CANNABINOIDS POS (NEG); COCAINE NEG (NEG); METHADONE NEG (NEG); OPIATES NEG (NEG); PHENCYCLIDINE NEG (NEG)
[2019-05-30 14:18] LABS: BASO % 1 % (0-3); EOS # 0.1 x10^3/uL (0.0-0.7); EOS % 2 % (0-3); HEMATOCRIT 38.9 % (36.0-47.0); HEMOGLOBIN 13.2 g/dL (12.0-15.5); LYMPH % 26 % (24-48); MEAN CORPUSCULAR HEMOGLOBIN 33 pg (25-35); MEAN CORPUSCULAR HGB CONC 34 g/dL (31-37); MEAN CORPUSCULAR VOLUME 98 fL (79-100); MONO # 0.4 x10^3/uL (0.0-1.1); MONO % 9 % (0-9); NEUT # 2.5 x10^3/uL (1.8-7.7); NEUT % 63 % (31-73); PLATELET COUNT 110 x10^3/uL (140-400); RED BLOOD COUNT 3.98 x10^6/uL (3.50-5.40); RED CELL DISTRIBUTION WIDTH 13.6 % (11.5-14.5)
[2019-05-30 14:19] LABS: RBC,URINE 0 /HPF (0-2); WBC,URINE RARE /HPF (0-4)
[2019-05-30 14:20] LABS: BACTERIA,URINE 0 /HPF (0-FEW); HYALINE CASTS, URINE MODERATE /HPF; SQUAMOUS EPITHELIAL CELL,UR MANY /LPF; YEAST,URINE PRESENT /HPF
[2019-05-30] MEDS: LIDO:MAALOX 1:1 20 ML SINGLE DOSE. SWSW ONE (14:22)
--- NOTE | 2019-05-30 14:31 | PHYS DOC ---
Past Medical History Past Medical History: Alcoholism, GERD, Hypertension, Pancreatitis Past Surgical History: Tubal ligation Smoking Status: Former Smoker Alcohol Use: Heavy Drug Use: Marijuana Adult General Chief Complaint Chief Complaint: ABDOMINAL PAIN HPI HPI Patient is a 53 year old female who presents with patient states she went out the with family on this past Monday and that night she can vomiting and so did her . She stated Monday and Monday she also was vomiting. States she has not vomited since Monday and her stomach seemed to be settled down but she continues to have this epigastric burning. She states she was on ranitidine for her acid reflux. She states she has not taken that in a while. She states she has really bad acid reflux. She also has hypertension which has not taken her lisinopril since Monday but she states that she vomited back up. Patient is hype rtensive in the 200s. She rates her epigastric burning at 8 out of 10. Review of Systems Review of Systems GI: abdominal pain, denies nausea, vomiting, bloody stools or diarrhea [] All other systems were reviewed and found to be within normal limits, except as documented in this note. Current Medications Current Medications Current Medications Medications (Trade) Dose Ordered Sig/Dyllan Start Time Stop Time Status Last Admin Dose Admin Hydralazine HCl (Apresoline Inj) 5 mg 1X ONCE 05/30/19 17:30 05/30/19 17:31 DC 05/30/19 17:33 5 MG Info (CONTRAST GIVEN -- Rx MONITORING) 1 each PRN DAILY PRN 05/30/19 15:15 06/01/19 15:14 Iohexol (Omnipaque 300 Mg/ml) 75 ml 1X ONCE 05/30/19 15:15 05/30/19 15:16 DC 05/30/19 15:38 75 ML Multi-Ingredient Mouthwash/Gargle (Gi Cocktail) 20 ml 1X ONCE 05/30/19 14:00 05/30/19 14:01 DC 05/30/19 14:22 20 ML Sodium Chloride 1,000 ml @ 1,000 mls/hr 1X ONCE 05/30/19 14:45 05/30/19 15:44 DC 05/30/19 14:57 1,000 MLS/HR Allergies Allergies Allergies Coded Allergies Type Severity Reaction Last Updated Verified No Known Drug Allergies 03/27/15 No Physical Exam Physical Exam Constitutional: Well developed, well nourished, no acute distress, non-toxic appearance. [] HENT: Normocephalic, atraumatic, bilateral external ears normal, oropharynx moist, no oral exudates, nose normal. [] Eyes: PERRLA, EOMI, conjunctiva normal, no discharge. [] Neck: Normal range of motion, no tenderness, supple, no stridor. [] Cardiovascular:Heart rate regular rhythm, no murmur [] Lungs & Thorax: Bilateral breath sounds clear to auscultation [] Abdomen: Bowel sounds normal, soft, epigastric tenderness, no masses, no pulsatile masses. [] Skin: Warm, dry, no erythema, no rash. [] Back: No tenderness, no CVA tenderness. [] Extremities: No tenderness, no cyanosis, no clubbing, ROM intact, no edema. [] Neurologic: Alert and oriented X 3, normal motor function, normal sensory function, no focal deficits noted. [] Psychologic: Affect normal, judgement normal, mood normal. [] Current Patient Data Vital Signs Vital Signs Date Time Temp Pulse Resp B/P (MAP) Pulse Ox O2 Delivery O2 Flow Rate FiO2 05/30/19 17:33 97 223/109 05/30/19 13:35 98.2 18 99 Room Air 98.2 Lab Values Laboratory Tests Test 05/30/19 13:35 05/30/19 14:05 Urine Collection Type Unknown Urine Color Brenda Urine Clarity Clear Urine pH 6.0 (<5.0-8.0) Urine Specific [place] >=1.030 (1.000-1.030) Urine Protein 100 mg/dL (NEG-TRACE) Urine Glucose (UA) Negative mg/dL (NEG) Urine Ketones (Stick) 40 mg/dL (NEG) Urine Blood Negative (NEG) Urine Nitrite Negative (NEG) Urine Bilirubin Large (NEG) Urine Urobilinogen Dipstick 1.0 mg/dL (0.2 mg/dL) Urine Leukocyte Esterase Negative (NEG) Urine RBC 0 /HPF (0-2) Urine WBC Rare /HPF (0-4) Urine Squamous Epithelial Cells Many /LPF Urine Bacteria 0 /HPF (0-FEW) Urine Hyaline Casts Moderate /HPF Urine Mucus Marked /LPF Urine Yeast Present /HPF Urine Opiates Screen Neg (NEG) Urine Methadone Screen Neg (NEG) Urine Barbiturates Neg (NEG) Urine Phencyclidine Screen Neg (NEG) Urine Amphetamine/Methamphetamine Neg (NEG) Urine Benzodiazepines Screen Neg (NEG) Urine Cocaine Screen Neg (NEG) Urine Cannabinoids Screen Pos (NEG) Urine Ethyl Alcohol Neg (NEG) White Blood Count 4.0 x10^3/uL (4.0-11.0) Red Blood Count 3.98 x10^6/uL (3.50-5.40) Hemoglobin 13.2 g/dL (12.0-15.5) Hematocrit 38.9 % (36.0-47.0) Mean Corpuscular Volume 98 fL (79-100) Mean Corpuscular Hemoglobin 33 pg (25-35) Mean Corpuscular Hemoglobin Concent 34 g/dL (31-37) Red Cell Distribution Width 13.6 % (11.5-14.5) Platelet Count 110 x10^3/uL (140-400) L Neutrophils (%) (Auto) 63 % (31-73) Lymphocytes (%) (Auto) 26 % (24-48) Monocytes (%) (Auto) 9 % (0-9) Eosinophils (%) (Auto) 2 % (0-3) Basophils (%) (Auto) 1 % (0-3) Neutrophils # (Auto) 2.5 x10^3/uL (1.8-7.7) Lymphocytes # (Auto) 1.0 x10^3/uL (1.0-4.8) Monocytes # (Auto) 0.4 x10^3/uL (0.0-1.1) Eosinophils # (Auto) 0.1 x10^3/uL (0.0-0.7) Basophils # (Auto) 0.0 x10^3/uL (0.0-0.2) Prothrombin Time 12.2 SEC (11.7-14.0) Prothrombin Time INR 0.9 (0.8-1.1) Sodium Level 136 mmol/L (136-145) Potassium Level 3.7 mmol/L (3.5-5.1) Chloride Level 96 mmol/L (98-107) L Carbon Dioxide Level 22 mmol/L (21-32) Anion Gap 18 (6-14) H Blood Urea Nitrogen 11 mg/dL (7-20) Creatinine 0.6 mg/dL (0.6-1.0) Estimated GFR (Cockcroft-Gault) 125.6 BUN/Creatinine Ratio 18 (6-20) Glucose Level 107 mg/dL (70-99) H Calcium Level 9.4 mg/dL (8.5-10.1) Total Bilirubin 0.6 mg/dL (0.2-1.0) Aspartate Amino Transferase (AST) 33 U/L (15-37) Alanine Aminotransferase (ALT) 23 U/L (14-59) Alkaline Phosphatase 98 U/L (46-116) Troponin I Quantitative < 0.017 ng/mL (0.000-0.055) Total Protein 7.6 g/dL (6.4-8.2) Albumin 4.1 g/dL (3.4-5.0) Albumin/Globulin Ratio 1.2 (1.0-1.7) Lipase 2036 U/L (73-393) H Laboratory Tests 05/30/19 14:05 Laboratory Tests 05/30/19 14:05 EKG EKG Sinus rhythm and no STEMI Interpretation Time: [address] Storey Radiology/Procedures Radiology/Procedures [] Impressions: [facility] [address] [place], [place] [id number] IMAGING REPORT Signed PATIENT: LACEY MAC ACCOUNT: [id number] : 1965 LOCATION: ER AGE: 53 SEX: F EXAM STATUS: REG ER ORD. PHYSICIAN: NEAL UNDERWOOD APRN REASON: N/V, ABD PAIN, ELEVATED LIPASE PROCEDURE: ABDOMEN LTD ABDOMEN LTD History: Nausea vomiting. Abdominal pain. Elevated lipase. Comparison: CT May 30, 2019. Technique: Transabdominal ultrasound images are obtained of the right upper quadrant. Findings: Visualized pancreas is unremarkable as visualized. Liver is normal in echogenicity. Right hepatic lobe measures 17 cm. Portal flow is hepatopedal. Distended gallbladder. No cholelithiasis. No gallbladder wall thickening or pericholecystic fluid. Common bile duct measures 2.1 mm in diameter. The right kidney measures 9.6 x 4.3 x 3.9 cm. No hydronephrosis. Visualized portions of the aorta and IVC have normal caliber. IMPRESSION: 1. Distended gallbladder. No cholelithiasis or gallbladder wall thickening. Electronically signed by: Bang Plaza DO (05/30/2019 4:49 PM) [id number] DICTATED and SIGNED BY: BANG PLAZA DO DATE: 05/30/19 1649 [facility] [address] [place] [address] IMAGING REPORT Signed PATIENT: LACEY MAC ACCOUNT: [id number] : 1965 LOCATION: ER AGE: 53 SEX: F EXAM STATUS: REG ER ORD. PHYSICIAN: NEAL UNDERWOOD APRN REASON: ABD PAIN PROCEDURE: CT ABD PELV W/ IV CONTRST ONLY Study: CT abdomen/pelvis with intravenous contrast Indication: Abdominal pain. Comparison: 02/08/2017 Technique: Helical CT imaging performed of the abdomen and pelvis after the intravenous administration of 75 cc Omnipaque 300 contrast. Sagittal and coronal reformats were obtained. One or more of the following individualized dose reduction techniques were utilized for this examination: 1. Automated exposure control 2. Adjustment of the mA and/or kV according to patient size 3. Use of iterative reconstruction technique. Findings: Chest: A few ill-defined opacities are seen at the lung bases with thin areas extending to the pleural margins. A more prominent opacity at the lateral aspect of the right lower lobe with a central area of low attenuation, image 8 series 2, was present previously but has slightly increased in prominence. The appearance of this latter finding could represent an area of round atelectasis. The visualized heart is unremarkable. Liver: Diffuse hepatic steatosis. The liver is more prominent size relative to the comparison. Gallbladder/Biliary Tree: Distended gallbladder but without CT findings of acute cholecystitis. Pancreas: Unremarkable. Spleen: Within normal limits for size. A few granulomas noted. Adrenal Glands: Incidental adrenal gland nodule on the right was present previously and is essentially no different in size and internal density. No follow-up imaging is needed per consensus recommendation based on imaging criteria. Kidneys/Ureters/Bladder: No newly seen renal parenchymal abnormality. No hydroureteronephrosis. Unremarkable bladder. Reproductive Organs: The uterus is within normal limits. No adnexal mass. Colon: A few diverticuli without diverticulitis. No pericolonic inflammatory changes. Appendix: Normal. Small Bowel: No small bowel obstruction. Stomach: No concerning abnormality noting incomplete distention. Vasculature: Multifocal calcified and noncalcified atheromatous plaque without aortic aneurysmal dilatation. There appears to be increasing mostly soft plaque involving the right common iliac artery, image 47 series 2. Similar amount of dense calcific plaque at the origin of the right renal artery. The portal veins are patent as is the superior mesenteric vein. Lymph Nodes: No newly seen lymphadenopathy. Peritoneum and Body Wall: Fat-containing supraumbilical hernias are no different. Fat-containing inguinal hernia on the right. Bones: No newly seen osseous abnormality. Miscellaneous: None. Impression: 1. Diffuse hepatic steatosis. The size of the liver has increased since 2017. The spleen is normal in size. 2. Ectatic gallbladder but without CT findings of acute cholecystitis. 3. Unchanged incidental right adrenal gland nodule. No follow-up imaging is needed per consensus recommendation based on imaging criteria. 4. A few ill-defined opacities at both lung bases potentially atelectasis or scarring though a mild infectious process could appear similar. Density with central low attenuation at the lateral right lower lobe exhibits an appearance typical of round atelectasis. 5. Additional chronic findings as above. Electronically signed by: DELANO JIMENEZ MD (05/30/2019 4:07 PM) [id number] DICTATED and SIGNED BY: DELANO JIMENEZ MD DATE: 05/30/19 1607 Course & Med Decision Making Course & Med Decision Making Pertinent Labs and Imaging studies reviewed. (See chart for details) Alert and oriented. Ambulatory steady gait. Epigastric tenderness but abdomen otherwise soft. Skin pink warm and dry. Patient states she is keeping down fl uids but has been too afraid to eat due to fear of vomiting. No extremity swelling. Denies chest pain, shortness of air, fever, dysuria, diarrhea, constipation, headache, dizziness, syncope, focal weakness, visual changes, numbness or tingling. Patient states she is feel much better. Patient is stable and in no Distress. Patient was given Hydralazine at a total of 10mg. Her blood pressure is in the 190's. Patient remains symptomatic. [] Dragon Disclaimer Dragon Disclaimer This electronic medical record was generated, in whole or in part, using a voice recognition dictation system. Departure Departure Impression: Primary Impression: Abdominal pain Disposition: HOME, SELF-CARE Condition: STABLE Referrals: NO PCP (PCP) Patient Instructions: Gastritis, Adult Additional Instructions: Follow up with primary care provider. Take medications as prescribed. Drink plenty of fluids. Slowly increase your diet. Scripts Lisinopril (LISINOPRIL) 20 Mg Tablet 1 TAB PO DAILY, #30 TAB 0 Refills Prov: NEAL UNDERWOOD APRN 05/30/19 Famotidine (PEPCID) 20 Mg Tablet 20 MG PO BID, #30 TAB Prov: NEAL UNDERWOOD APRN 05/30/19 Ondansetron (ONDANSETRON ODT) 4 Mg Tab.rapdis 1 TAB PO PRN Q6-8HRS, #16 TAB Prov: NEAL UNDERWOOD APRN 05/30/19 Problem Qualifiers Primary Impression: Abdominal pain Abdominal location: epigastric Qualified Codes: R10.13 - Epigastric pain NEAL UNDERWOOD APRN May 30, 2019 14:31
[2019-05-30 14:35] LABS: PROTHROMBIN TIME PATIENT 12.2 SEC (11.7-14.0)
[2019-05-30 14:36] LABS: CALCIUM 9.4 mg/dL (8.5-10.1); CREATININE 0.6 mg/dL (0.6-1.0); GFR 125.6; POTASSIUM 3.7 mmol/L (3.5-5.1)
[2019-05-30 14:44] LABS: ALBUMIN 4.1 g/dL (3.4-5.0); ALBUMIN/GLOBULIN RATIO 1.2 (1.0-1.7); TOTAL BILIRUBIN 0.6 mg/dL (0.2-1.0); TOTAL PROTEIN 7.6 g/dL (6.4-8.2)
--- NOTE | 2019-05-30 14:46 | EKG ---
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
[2019-05-30] MEDS: IV NORMAL SALINE 1000ML BAG 1,000 ML IV ONE (14:57)
[2019-05-30] MEDS: hydrALAZINE 20 MG/ML VIAL. IVP ONE ×2 (14:58→17:33)
[2019-05-30] MEDS ORDERED: CONTRAST GIVEN. MC PRN (15:15)
[2019-05-30] MEDS: IOHEXOL 300 MG/ML 100ML VIAL. IV ONE (15:38)
--- NOTE | 2019-05-30 16:10 | RAD ---
Study: CT abdomen/pelvis with intravenous contrast Indication: Abdominal pain. Comparison: 02/08/2017 Technique: Helical CT imaging performed of the abdomen and pelvis after the intravenous administration of 75 cc Omnipaque 300 contrast. Sagittal and coronal reformats were obtained. One or more of the following individualized dose reduction techniques were utilized for this examination: 1. Automated exposure control 2. Adjustment of the mA and/or kV according to patient size 3. Use of iterative reconstruction technique. Findings: Chest: A few ill-defined opacities are seen at the lung bases with thin areas extending to the pleural margins. A more prominent opacity at the lateral aspect of the right lower lobe with a central area of low attenuation, image 8 series 2, was present previously but has slightly increased in prominence. The appearance of this latter finding could represent an area of round atelectasis. The visualized heart is unremarkable. Liver: Diffuse hepatic steatosis. The liver is more prominent size relative to the comparison. Gallbladder/Biliary Tree: Distended gallbladder but without CT findings of acute cholecystitis. Pancreas: Unremarkable. Spleen: Within normal limits for size. A few granulomas noted. Adrenal Glands: Incidental adrenal gland nodule on the right was present previously and is essentially no different in size and internal density. No follow-up imaging is needed per consensus recommendation based on imaging criteria. Kidneys/Ureters/Bladder: No newly seen renal parenchymal abnormality. No hydroureteronephrosis. Unremarkable bladder. Reproductive Organs: The uterus is within normal limits. No adnexal mass. Colon: A few diverticuli without diverticulitis. No pericolonic inflammatory changes. Appendix: Normal. Small Bowel: No small bowel obstruction. Stomach: No concerning abnormality noting incomplete distention. Vasculature: Multifocal calcified and noncalcified atheromatous plaque without aortic aneurysmal dilatation. There appears to be increasing mostly soft plaque involving the right common iliac artery, image 47 series 2. Similar amount of dense calcific plaque at the origin of the right renal artery. The portal veins are patent as is the superior mesenteric vein. Lymph Nodes: No newly seen lymphadenopathy. Peritoneum and Body Wall: Fat-containing supraumbilical hernias are no different. Fat-containing inguinal hernia on the right. Bones: No newly seen osseous abnormality. Miscellaneous: None. Impression: 1. Diffuse hepatic steatosis. The size of the liver has increased since 2017. The spleen is normal in size. 2. Ectatic gallbladder but without CT findings of acute cholecystitis. 3. Unchanged incidental right adrenal gland nodule. No follow-up imaging is needed per consensus recommendation based on imaging criteria. 4. A few ill-defined opacities at both lung bases potentially atelectasis or scarring though a mild infectious process could appear similar. Density with central low attenuation at the lateral right lower lobe exhibits an appearance typical of round atelectasis. 5. Additional chronic findings as above. Electronically signed by: DELANO JIMENEZ MD (05/30/2019 4:07 PM) [id number]
--- NOTE | 2019-05-30 16:52 | RAD ---
ABDOMEN LTD History: Nausea vomiting. Abdominal pain. Elevated lipase. Comparison: CT May 30, 2019. Technique: Transabdominal ultrasound images are obtained of the right upper quadrant. Findings: Visualized pancreas is unremarkable as visualized. Liver is normal in echogenicity. Right hepatic lobe measures 17 cm. Portal flow is hepatopedal. Distended gallbladder. No cholelithiasis. No gallbladder wall thickening or pericholecystic fluid. Common bile duct measures 2.1 mm in diameter. The right kidney measures 9.6 x 4.3 x 3.9 cm. No hydronephrosis. Visualized portions of the aorta and IVC have normal caliber. IMPRESSION: 1. Distended gallbladder. No cholelithiasis or gallbladder wall thickening. Electronically signed by: Bang Plaza DO (05/30/2019 4:49 PM) [id number]
[2019-05-30] MEDS ORDERED: FAMO-63 PO (17:02)
[2019-05-30] MEDS ORDERED: ONDA4TAB12 PO (17:02)
[2019-05-30 18:00] VITALS: BP 194/93
[2019-05-30] MEDS ORDERED: LISI-334 PO (18:25)
== END 2019-05-30 18:36 | disposition home or self-care (01) ==
LOC: ER 11:18
DX: R10.13 Epigastric pain (principal); R11.2 Nausea with vomiting, unspecified; K21.9 Gastro-esophageal reflux disease without esophagitis; I10 Essential (primary) hypertension; Z98.51 Tubal ligation status; Z87.891 Personal history of nicotine dependence; F10.10 Alcohol abuse, uncomplicated; Z79.899 Other long term (current) drug therapy
CPT/HCPCS: 36415; 74177; 76705; 80053; 80307; 81001; 83690; 84484; 85025; 85610; 93005; 96361; 96374; 96375; 96376; 99285; J0360; J7030; Q9967

== ENCOUNTER 2019-10-11 07:10 | Emergency (ER) | payer SELFPAY ==
[~2019-10-11] VITALS: Ht 160 cm; Wt 49.5 kg
[~2019-10-11 07:10] MED LIST changes: +FAMO-63 PO; +ONDA4TAB12 PO
[2019-10-11 07:17] VITALS: BP 149/71
[2019-10-11] MEDS ORDERED: DEXAMETHASONE 4 MG TABLET PO ONE (07:30)
[2019-10-11] MEDS ORDERED: PRED20TA PO (07:30)
[2019-10-11] MEDS ORDERED: HYDROcodone/APAP 5/325MG 1 TAB TABLET PO ONE (07:30)
[2019-10-11] MEDS ORDERED: HYDR-3164 PO (07:30)
--- NOTE | 2019-10-11 07:30 | PHYS DOC ---
Past Medical History Past Medical History: Alcoholism, GERD, Hypertension, Pancreatitis Additional Past Medical Histor: Gout Past Surgical History: Tubal ligation Smoking Status: Former Smoker Alcohol Use: Heavy Drug Use: Marijuana General Adult EDM: Chief Complaint: FOOT INJURY PAIN HPI: HPI: Patient is a 54 year old female presents with report of pain and swelling to base of right great toe that started a few days ago. Reports history of gout. Patient reports now swelling has continued along base of other toes. Denies known trauma. Reports concern for some dark discoloration. Patient has been taking her 's indomethacin. Denies fever or chills. Denies numbness or tingling. Review of Systems: Review of Systems: Constitutional: Denies fever or chills Eyes: Denies redness or eye pain HENT: Denies nasal congestion or sore throat Respiratory: Denies cough or shortness of breath Cardiovascular: Denies chest pain or palpitations GI: Denies abdominal pain, nausea, or vomiting : Denies dysuria or hematuria Musculoskeletal: Reports pain to right foot primarily at base of great toe Integument: Reports swelling and discoloration to base of toes on right foot Neurologic: Denies headache, focal weakness or sensory changes Complete systems were reviewed and found to be within normal limits, except as documented in this note. Allergies: Allergies: Allergies Coded Allergies Type Severity Reaction Last Updated Verified No Known Drug Allergies 03/27/15 No Physical Exam: PE: Constitutional: Well developed, well nourished, no acute distress, non-toxic appearance HENT: Normocephalic, atraumatic Eyes: Conjunctiva normal, no discharge Neck: Normal range of motion, supple Cardiovascular: Right DP and PT +2, CR < 2 sec Lungs & Thorax: No respiratory distress, equal chest rise and fall Skin: Warm, dry, no erythema, mild swelling to base of right toe Extremities: Tenderness on palpation of base of right great toe as well as base of other toes., ROM intact, mild focal edema to right foot Neurologic: Alert and oriented X 3, no focal deficits noted Psychologic: Affect normal, judgment normal EKG: EKG: [] Radiology/Procedures: Radiology/Procedures: PROCEDURE: FOOT RIGHT 3V FOOT RIGHT 3V DATE: 10/11/2019 7:24 AM INDICATION: Reason: right 1st proximal metatarsal pain/swelling no known injury. / Spl. Instructions: / History: COMPARISON: None. FINDINGS: Bones: There is no evidence of acute fracture or dislocation. Hallux valgus. Joints: The joint spaces are normal. Miscellaneous: Forefoot soft tissue swelling. IMPRESSION: No acute osseous abnormality. Electronically signed by: Darinel Poole MD (10/11/2019 7:45 AM) [id number] Course & Med Decision Making: Course & Med Decision Making Pertinent Imaging studies reviewed. (See chart for details) Patient presents with HPI and physical exam concerning for acute gouty attack. Pain addressed. Anti-inflammatory initiated. X-ray obtained without fracture or dislocation. A postop shoe provided for comfort. KRACs report obtained. No recent controlled substances noted. Pain addressed. Patient stable for discharge with outpatient follow-up with PCP/student financial services counselor. Investigation Clerk referral provided. Discussed findings and plan with patient and family, who acknowledge understanding and agreement. Edward Disclaimer: Edward Disclaimer: This electronic medical record was generated, in whole or in part, using a voice recognition dictation system. Splinting Splinting : Location: Right foot Pre-Made Type: Post op shoe Pre-Proc Neuro Vasc Exam: normal Post-Proc Neuro Vasc Exam: normal, unchanged from pre-exam Departure Departure Impression: Primary Impression: Foot pain, right Additional Impression: Gout Qualified Codes: M10.9 - Gout, unspecified Disposition: 01 HOME, SELF-CARE Condition: STABLE Referrals: NO PCP (PCP) SHAMIKA ACE DPM Patient Instructions: Gout, [id number], Hard-Soled Shoe Scripts Prednisone (PREDNISONE) 20 Mg Tablet 2 TAB PO DAILY for 4 Days, #8 TAB Start this prescription tomorrow, Monday10/12/19 Prov: CARLO AMOS DO 10/11/19 Hydrocodone/Apap 5-325 (NORCO 5-325 TABLET) 1 Each Tablet 0.5-1 TAB PO PRN Q6HRS PRN for PAIN, #10 TAB 0 Refills Prov: CARLO AMOS DO 10/11/19 Justicifation of Admission Dx: Justifications for Admission: Justification of Admission Dx: N/A CARLO AMOS DO Oct 11, 2019 07:30
--- NOTE | 2019-10-11 07:48 | RAD ---
FOOT RIGHT 3V DATE: 10/11/2019 7:24 AM INDICATION: Reason: right 1st proximal metatarsal pain/swelling no known injury. / Spl. Instructions: / History: COMPARISON: None. FINDINGS: Bones: There is no evidence of acute fracture or dislocation. Hallux valgus. Joints: The joint spaces are normal. Miscellaneous: Forefoot soft tissue swelling. IMPRESSION: No acute osseous abnormality. Electronically signed by: Darinel Poole MD (10/11/2019 7:45 AM) [id number]
== END 2019-10-11 07:57 | disposition home or self-care (01) ==
LOC: ER 07:10
DX: M79.674 Pain in right toe(s) (principal); M10.9 Gout, unspecified; R60.0 Localized edema; K21.9 Gastro-esophageal reflux disease without esophagitis; I10 Essential (primary) hypertension; K86.0 Alcohol-induced chronic pancreatitis; F10.10 Alcohol abuse, uncomplicated; F12.90 Cannabis use, unspecified, uncomplicated; Z98.51 Tubal ligation status; Z87.891 Personal history of nicotine dependence
CPT/HCPCS: 73630; 99283